=== PATIENT | male | born 1975 | race Two or more races ===

== ENCOUNTER 2020-07-24 11:29 | Outpatient (REF) | payer OTHER, SELFPAY | END 2020-07-24 11:30 | disposition home or self-care (01) | LOC: HO.LAB 11:29 | PROVIDERS: Visit Provider Internal Medicine | DX: Z20.822 Contact with and (suspected) exposure to COVID-19 (principal) | CPT/HCPCS: 36415; C9803; U0003; U0005 ==

== ENCOUNTER 2020-10-29 01:58 | Emergency (ER) | payer OTHER, SELFPAY ==
[2020-10-29 02:45] VITALS: BP 130/75; PULSE 72; RESP 16; TEMP 36.7; O2SAT 100; BMI 24.5
--- NOTE | 2020-10-29 02:49 | ED.BACK ---
HPI - Back Pain/Injury General Chief Complaint: Extremity Injury, Upper Stated Complaint: rt arm pain Time Seen by Provider: 10/29/20 02:10 Source: patient Mode of arrival: ambulatory Limitations: no limitations History of Present Illness MD elicited complaint: back pain Pertinent past history: prior back pain and back surgery Onset (ago): week(s) (1) Timing: constant Severity: severe Quality: sharp and stabbing Location: thoracic spine Radiation: other (L shoulder) Exacerbating factors: movement Relieving factors: none Context: unknown Associated symptoms: denies other symptoms Work related injury: No Related Data Previous Rx's Medication Instructions Recorded diazepam [Valium] 5 mg PO TID PRN #10 tab 10/29/20 ibuprofen 600 mg PO Q6H PRN #30 tab 10/29/20 lidocaine 1 patch TOPICAL DAILY PRN #10 ea 10/29/20 prednisone 40 mg PO DAILY 4 Days #8 tab 10/29/20 Allergies Allergy/AdvReac Type Severity Reaction Status Date / Time Gadolinium-Containing Allergy Mild Pt Unverified 02/29/20 15:54 Contrast Medi developed [GADOLINIUM-CONTAINING hives on CONTRAST] neck and chest, no other complications acetaminophen [Vicodin] Allergy Unknown rash Verified 06/06/20 14:27 hydrocodone [From VICODIN] Allergy Unknown RASH Verified 06/06/20 14:27 penicillin V Allergy Unknown Unknown Verified 06/06/20 14:27 Penicillins [PENICILLINS] Allergy Unknown HIVES Verified 06/06/20 14:27 Review of Systems Review of Systems: Constitutional : No Weight loss, No Fever ENT/Mouth : No Hearing loss, No Ear Pain Cardiovascular : No Chest Pain, No SOB Respiratory : No Cough, No Dyspnea Gastrointestinal : No Nausea, No Vomiting Genitourinary : No Dysuria, No Urinary Frequency Musculoskeletal : positive back pain Skin : No Skin Lesions, No rash Neuro : No Weakness, No Numbness, No Paresthesias, no loss of bowel or bladder incontinence, no saddle anesthesia PMFSH Past Medical History Attestation statement: The following information was validated with the patient. Medical History Back pain Surgical History (Updated 06/06/20 @ 14:28 by Elba Vargas, SAIMA, [employer] CON[employer]YOR OPERATOR) No pertinent past surgical history Family History Family History (Updated 06/06/20 @ 14:32 by Elba Vargas, RMA, C[employer] CONVEYOR OPERATOR) Father Unknown family medical history Mother Diabetes mellitus Heart failure HTN (hypertension) History of bilateral hip replacements Maternal Grandmother Diabetes mellitus HTN (hypertension) Social History Social History (Updated 10/29/20 @ 02:59 by Justa Murillo DO) Use of substances other than those prescribed or required for medical reasons: No Advance Directives: No Advance Directives Information Provided: No Physical Exam Vital Signs: Vital Signs: Last Vital Signs Temp 98.0 F 10/29/20 02:45 Pulse 72 10/29/20 02:45 Resp 16 10/29/20 02:45 BP 130/75 10/29/20 02:45 Pulse Ox 100 10/29/20 02:45 Body Mass Index 24.5 Appearance: Alert. Oriented X3. No acute distress. Eyes: Pupils equal, round and reactive to light. ENT: Pharynx normal. Neck: Normal inspection. Neck supple. CVS: Normal heart rate and rhythm. Pulses normal. Respiratory: No respiratory distress. Breath sounds normal. Abdomen: Soft and nontender. Back: upper back ttp along L paraspinal thoracic area with spasm, radiates to LUE NV intact Skin: Skin warm and dry. Normal skin color. Normal skin turgor. Extremities: No lower extremity edema. No calf ttp Neuro: Oriented X 3. No motor deficit. No sensory deficit. MDM - Back Pain/Injury MDM Narrative Medical decision making narrative: 45 yo male prior back injury and comes in with 1 week of upper back pain radiating to LUE making it painful at his shoulder, no trauma, no AC therapy, no IVDA - NV intact, will treat as radiculopathy and DC home has NSGY he has seen in the past Discharge Plan Discharge Clinical Impression: Radiculopathy of thoracic region Patient Disposition: Home, Self-Care Instructions: Back Pain (ED) Additional Instructions: return to ED for any worsening symptoms or concerns Prescriptions: New lidocaine 4 % adhesive patch,medicated 1 patch topical DAILY PRN (Reason: pain) Qty: 10 RF: 0 ibuprofen 600 mg tablet 600 mg PO Q6H PRN (Reason: pain) Qty: 30 RF: 0 diazepam [Valium] 5 mg tablet 5 mg PO TID PRN (Reason: muscle spasm) Qty: 10 RF: 0 prednisone 20 mg tablet 40 mg PO DAILY 4 Days Qty: 8 RF: 0 Referrals: Kendra Abraham MD [Physician] - 5 days
[2020-10-29] MEDS: diazePAM 5 MG TABLET PO (02:56)
[2020-10-29] MEDS: predniSONE 20 MG TABLET PO (02:56)
[2020-10-29] MEDS: Lidocaine 4 % Patch ADH..PATCH 1 PATCH TRANSDERMA (02:58)
[2020-10-29] MEDS: Ketorolac Tromethamine 60 MG/2 ML VIAL IM (03:00)
== END 2020-10-29 03:00 | disposition home or self-care (01) ==
PROVIDERS: Emergency Provider Emergency Medicine; PCP Nurse Practitioner Family
DX: M54.14 Radiculopathy, thoracic region (principal); M54.6 Pain in thoracic spine
CPT/HCPCS: 96372; 99283; 99284; J1885

== ENCOUNTER 2020-11-06 16:23 | Emergency (ER) | payer OTHER, SELFPAY ==
--- NOTE | ~2020-11-06 | XR_ITS ---
EXAMINATION: XR SHOULDER, LEFT CLINICAL INFORMATION: Shoulder injury and pain COMPARISON: None TECHNIQUE: Three views of the left shoulder. FINDINGS: Marked degenerative changes present at the acromioclavicular joint with some large osteophytes causing skin bulging. Glenohumeral joint appears normal. No calcifications are seen in the rotator cuff. No fractures or dislocations. There is cortical thickening and visualized left humeral diaphysis which may be related to a remote fracture. XR/XR shoulder LT min 2V IMPRESSION: No evidence of an acute injury. Degenerative changes left AC joint.
[2020-11-06 16:42] VITALS: BP 121/71; PULSE 85; RESP 18; TEMP 36.7; O2SAT 99; BMI 24.2
--- NOTE | 2020-11-06 17:59 | ED.EXTPRO ---
HPI - Extremity Problem General Chief complaint: Extremity Injury, Upper <GUADALUPE Gtz Last Filed: 11/15/20 12:37> Stated complaint: sholder pain <GUADALUPE Gtz Last Filed: 11/15/20 12:37> Time Seen by Provider: 11/06/20 16:43 <GUADALUPE Gtz Last Filed: 11/15/20 12:37> History of Present Illness HPI Narrative: Left shoulder pain after lifting a heavy object today, patient has history of problems with this shoulder, no numbness or weakness no tingling no neck pain no back pain <GUADALUPE Gtz Last Filed: 11/15/20 12:37> Related Data Home medications: Previous Rx's Medication Instructions Recorded diazepam [Valium] 5 mg PO TID PRN #10 tab 10/29/20 ibuprofen 600 mg PO Q6H PRN #30 tab 10/29/20 lidocaine 1 patch TOPICAL DAILY PRN #10 ea 10/29/20 prednisone 40 mg PO DAILY 4 Days #8 tab 10/29/20 ibuprofen 600 mg PO Q6H PRN #20 tab 11/06/20 oxycodone 5 mg PO Q6H PRN #10 tab 11/06/20 <GUADALUPE Gtz Last Filed: 11/15/20 12:37> Allergies/Adverse reactions: Allergies Allergy/AdvReac Type Severity Reaction Status Date / Time Gadolinium-Containing Allergy Mild Pt Verified 11/06/20 16:46 Contrast Medi developed [GADOLINIUM-CONTAINING hives on CONTRAST] neck and chest, no other complications acetaminophen [Vicodin] Allergy Unknown rash Verified 11/06/20 16:46 hydrocodone [From VICODIN] Allergy Unknown RASH Verified 11/06/20 16:46 penicillin V Allergy Unknown Unknown Verified 11/06/20 16:46 Penicillins [PENICILLINS] Allergy Unknown HIVES Verified 11/06/20 16:46 <GUADALUPE Gtz Last Filed: 11/15/20 12:37> Review of Systems Review of Systems: Positive for left shoulder pain with movement Negatives are no fever chills no dizziness or weakness no headache no neck pain no back pain no numbness weakness or tingling no skin rash <GUADALUPE Gtz Last Filed: 11/15/20 12:37> Yes all other systems are reviewed and are negative <GUADALUPE Gtz Last Filed: 11/15/20 12:37> [facility] Past Medical History Source: nursing notes reviewed <GUADALUPE Gtz - Last Filed: 11/15/20 12:37> Medical History: Medical History (Updated 11/07/20 @ 00:01 by Rhiannon Moe) Back pain <GUADALUPE Gtz - Last Filed: 11/15/20 12:37> Surgical History: Surgical History (Updated 11/06/20 @ 16:44 by Géneiss Bradshaw RN) No pertinent past surgical history Previous back surgery <GUADALUPE Gtz - Last Filed: 11/15/20 12:37> Family History Family History: Family History (Updated 06/06/20 @ 14:32 by RUBINA Austin, [facility]) Father Unknown family medical history Mother Diabetes mellitus Heart failure HTN (hypertension) History of bilateral hip replacements Maternal Grandmother Diabetes mellitus HTN (hypertension) <GUADALUPE Gtz - Last Filed: 11/15/20 12:37> Social History Social History: Social History (Updated 10/29/20 @ 02:59 by Justa Murillo DO) Advance Directives: No Advance Directives Information Provided: No <GUADALUPE Gtz - Last Filed: 11/15/20 12:37> Physical Exam Vital Signs: Vital Signs: Last Vital Signs Temp 98.0 F 11/06/20 16:42 Pulse 85 11/06/20 16:42 Resp 18 11/06/20 16:42 BP 121/71 11/06/20 16:42 Pulse Ox 99 11/06/20 16:42 Body Mass Index 24.2 <GUADALUPE Gtz - Last Filed: 11/15/20 12:37> Vital Signs: Last Vital Signs Temp 98.0 F 11/06/20 16:42 Pulse 85 11/06/20 16:42 Resp 18 11/06/20 16:42 BP 121/71 11/06/20 16:42 Pulse Ox 99 11/06/20 16:42 Body Mass Index 24.2 <Collin Cartagena MD - Last Filed: 12/17/20 18:52> General appearance no distress Head is normocephalic atraumatic Neck is supple nontender Chest is clear to auscultation bilateral symmetric equal breath sounds No chest wall tenderness Heart no murmur Abdomen soft nontender Extremities the left shoulder has tenderness, pain is easily reproduced with movement, there is limited extension abduction and external rotation aunt's neurovascular intact distal and skin is normal without any redness swelling or evidence of effusion Other extremities normal Skin no rash Neuro no focal motor or sensory deficits <GUADALUPE Gtz Last Filed: 11/15/20 12:37> Course Course Course Narrative: X-ray did not reveal any acute pathology and patient is referred to orthopedist as there was some evidence of arthritis in the shoulder <GUADALUPE Gtz - Last Filed: 11/15/20 12:37> I have reviewed the chart <Collin Cartagena MD - Last Filed: 12/17/20 18:52> Discharge Plan Discharge Clinical Impression: Arthralgia of left shoulder region <GUADALUPE Gtz Last Filed: 11/15/20 12:37> Patient Disposition: Home, Self-Care <GUADALUPE Gtz Last Filed: 11/15/20 12:37> Prescriptions: New oxycodone 5 mg tablet 5 mg PO Q6H PRN (Reason: pain) Qty: 10 RF: 0 ibuprofen 600 mg tablet 600 mg PO Q6H PRN (Reason: pain) Qty: 20 RF: 0 No Action lidocaine 4 % adhesive patch,medicated 1 patch topical DAILY PRN (Reason: pain) Qty: 10 RF: 0 ibuprofen 600 mg tablet 600 mg PO Q6H PRN (Reason: pain) Qty: 30 RF: 0 diazepam [Valium] 5 mg tablet 5 mg PO TID PRN (Reason: muscle spasm) Qty: 10 RF: 0 prednisone 20 mg tablet 40 mg PO DAILY 4 Days Qty: 8 RF: 0 <GUADALUPE Gtz Last Filed: 11/15/20 12:37> Referrals: Ismael Paz MD [Physician] - 2 days (Left shoulder pain, possible candidate for steroid shot) <GUADALUPE Gtz Last Filed: 11/15/20 12:37> Interventions: ED Discharge Assessment Last Done: 11/06/20 18:38 <GUADALUPE Gtz Last Filed: 11/15/20 12:37> Discharge Date/Time: 11/06/20 18:39 <GUADALUPE Gtz - Last Filed: 11/15/20 12:37>
== END 2020-11-06 18:39 | disposition home or self-care (01) ==
PROVIDERS: Emergency Provider Internal Medicine; PCP Nurse Practitioner Family
DX: M25.512 Pain in left shoulder (principal); Z79.899 Other long term (current) drug therapy
CPT/HCPCS: 73030; 99283

== ENCOUNTER 2021-03-13 14:52 | Emergency (ER) | payer OTHER, SELFPAY ==
[2021-03-13 15:02] VITALS: BP 108/74; PULSE 69; RESP 18; TEMP 36.8; O2SAT 97; BMI 24.7
--- NOTE | 2021-03-13 16:51 | ED.WOUNDLAC ---
HPI - Wound/Laceration General Chief Complaint: Wound/Laceration Stated Complaint: laceration rt ankle Time Seen by Provider: 03/13/21 16:41 Source: patient and family Mode of arrival: ambulatory Limitations: no limitations History of Present Illness HPI narrative: Patient tells me that he was doing a remodal and a piece of a toilet cut his right lower leg causing a laceration. His tetanus status is unknown. Related Data Previous Rx's Medication Instructions Recorded diazepam 5 mg tablet (Valium) 5 mg PO TID PRN #10 tab 10/29/20 ibuprofen 600 mg tablet 600 mg PO Q6H PRN #30 tab 10/29/20 lidocaine 4 % topical patch 1 patch TOPICAL DAILY PRN #10 ea 10/29/20 prednisone 20 mg tablet 40 mg PO DAILY 4 Days #8 tab 10/29/20 ibuprofen 600 mg tablet 600 mg PO Q6H PRN #20 tab 11/06/20 oxycodone 5 mg tablet 5 mg PO Q6H PRN #10 tab 11/06/20 Allergies Allergy/AdvReac Type Severity Reaction Status Date / Time acetaminophen [Vicodin] Allergy Intermediate rash Unverified 03/13/21 15:02 hydrocodone [From VICODIN] Allergy Intermediate RASH Verified 03/13/21 15:02 penicillin V Allergy Intermediate Unknown Verified 03/13/21 15:02 Penicillins [PENICILLINS] Allergy Intermediate HIVES Verified 03/13/21 15:02 Gadolinium-Containing Allergy Mild Pt Verified 03/13/21 15:02 Contrast Medi developed [GADOLINIUM-CONTAINING hives on CONTRAST] neck and chest, no other complications Review of Systems Review of Systems: Yes all other systems are reviewed and are negative Constitutional: Constitutional: Reports no additional constitutional complaints, Denies body ache(s), Denies chills, Denies fever(s), Denies headache(s) and Denies weakness Eyes: Eyes: Reports no additional eye complaints and Denies change in vision ENT: Reports system reviewed and no additional complaints, except as documented, Denies dizziness, Denies headache(s), Denies nasal congestion, Denies nasal discharge and Denies neck pain Cardiovascular: Cardiovascular: Reports no additional cardiovascular complaints, Denies chest pain, Denies leg edema and Denies dyspnea Respiratory: Respiratory: Reports no additional respiratory complaints, Denies cough and Denies dyspnea Gastrointestinal: Gastrointestinal: Reports no additional gastrointestinal complaints, Denies abdominal pain, Denies diarrhea, Denies nausea and Denies vomiting Genitourinary: Genitourinary: Denies urinary incontinence Musculoskeletal: Musculoskeletal: Reports no additional musculoskeletal complaints, Denies back pain, Denies arthralgias, Denies joint swelling, Denies neck pain, Denies numbness and Denies tingling Integumentary/Breasts: Skin/Breast: Reports system reviewed and no additional complaints, except as docu and Denies rash Comments: +laceration Neurologic: Reports system reviewed and no additional complaints, except as documented, Denies Abnormal speech present, Denies dizziness, Denies headache(s), Denies numbness, Denies tingling and Denies weakness PMFSH Past Medical History Attestation statement: The following information was validated with the patient. Source: old records reviewed and nursing notes reviewed Medical History Back pain Surgical History Previous back surgery Family History Family History Father Unknown family medical history Mother Diabetes mellitus Heart failure HTN (hypertension) History of bilateral hip replacements Maternal Grandmother Diabetes mellitus HTN (hypertension) Social History Social History Advance Directives: No Advance Directives Information Provided: Yes Physical Exam Vital Signs: Vital Signs: Last Vital Signs Temp 98.2 F 03/13/21 15:02 Pulse 69 03/13/21 15:02 Resp 18 03/13/21 15:02 BP 108/74 03/13/21 15:02 Pulse Ox 97 03/13/21 15:02 Body Mass Index 24.7 Const: General: cooperative, healthy appearing, comfortable and no acute distress Orientation/consciousness: patient oriented x3 Limitations: no limitations HENMT: Head: Yes normal to inspection Ears: hearing grossly normal bilaterally General nose exam: Normal external nose present Face and sinus: Yes normal facial exam Mouth: Normal oral and palatal mucosa present Throat: Yes posterior oropharynx normal Eyes: General: appearance normal, both eyes and all related structures Pupils: Equal, round and reactive pupils present Neck: Neck: Yes normal visual inspection Chest: Chest palpation & inspection: normal inspection of the chest Resp: Effort & Inspection: normal respiratory effort Auscultation: clear to auscultation bilaterally Cardio: Rate: regular rate Rhythm: regular rhythm Peripheral pulses: Peripheral pulses 2+ throughout GI: Inspection: Yes normal to inspection Palpation (GI): Soft to palpation and nontender Auscultation: normal bowel sounds Back/Spine/Pelvis: Thoracic/Lumbar Spine: thoracic and lumbar spine normal to inspection Skin: General skin exam: no rashes or lesions noted Neuro: General: patient oriented x3, no focal motor deficits and normal sensation to monofilament Cranial nerves: Yes Equal, round and reactive pupils present Cognition (Neuro): normal cognition Speech: No Abnormal speech present Gait exam (Neuro): Normal gait present Motor exam (neuro): 5/5 motor strength present throughout Extrem: Other: On the medial aspect of the right lower leg there is a 5 centimetre skin avulsion noted. The edges are easily approximated. Bleeding is controlled General: Yes normal to inspection Course Course Course Narrative: Skin avulsion to the right lower extremity. The skin was approximated and closed with Steri-Strips and topical glue. Tetanus updated. Reviewed worrisome signs and symptoms when to return to the emergency department. Comfortable discharge home. MDM - Wound/Laceration Differential Diagnosis Differential diagnosis: Likely avulsion of skin Medical Records Attestation: I reviewed the patient's medical records. Lab Data Attestation: I reviewed the patient's lab results. Discharge Plan Discharge Clinical Impression: Avulsion of skin Patient Disposition: Home, Self-Care Instructions: Skin Avulsion (ED) Additional Instructions: steri strips on for 5 days, You may trim them if they start to lift up Prescriptions: No Action oxycodone 5 mg tablet 5 mg PO Q6H PRN (Reason: pain) Qty: 10 RF: 0 ibuprofen 600 mg tablet 600 mg PO Q6H PRN (Reason: pain) Qty: 20 RF: 0 lidocaine 4 % adhesive patch,medicated 1 patch topical DAILY PRN (Reason: pain) Qty: 10 RF: 0 ibuprofen 600 mg tablet 600 mg PO Q6H PRN (Reason: pain) Qty: 30 RF: 0 diazepam [Valium] 5 mg tablet 5 mg PO TID PRN (Reason: muscle spasm) Qty: 10 RF: 0 prednisone 20 mg tablet 40 mg PO DAILY 4 Days Qty: 8 RF: 0 Referrals: Kranthi Varner, [employer] [Primary Care Provider] - 2 days
[2021-03-13] MEDS: Diphth,Pertus(ACell),Tet Adult 0.5 ML SYRINGE IM (17:10)
== END 2021-03-13 17:13 | disposition home or self-care (01) ==
PROVIDERS: Emergency Provider Emergency Medicine Emergency Medical Services; PCP Nurse Practitioner Family
DX: S90.511A Abrasion, right ankle, initial encounter (principal); M25.571 Pain in right ankle and joints of right foot; W26.9XXA Contact with unspecified sharp object(s), initial encounter; Y93.9 Activity, unspecified; Y92.9 Unspecified place or not applicable; Y99.9 Unspecified external cause status; Z79.899 Other long term (current) drug therapy
CPT/HCPCS: 90471; 90715; 99283; 99284

== ENCOUNTER 2021-03-29 17:03 | Inpatient (IN) | payer OTHER, SELFPAY ==
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
[2021-03-29 17:22] VITALS: BP 130/90; BP 137/81; PULSE 80; PULSE 84; RESP 17; TEMP 36.6; O2SAT 100; O2SAT 99; BMI 20.9
[2021-03-29 17:30] VITALS: BP 137/81; PULSE 80; RESP 16; TEMP 36.6; O2SAT 99
[2021-03-29 17:38] LABS: MANUAL DIFF FLAG NO
[2021-03-29 17:40] LABS: Basophils Percent Auto 0.4 % (0-2); Eosinophils Absolute Auto 0.1 X10*3/uL (0.0-0.4); Eosinophils Percent Auto 0.7 % (0-4); Hematocrit 46.1 % (42-52); Hemoglobin 15.9 g/dl (14.0-18.0); Imm Gran Abs Auto 0.01 X10*3/uL (0.00-0.03); Imm Gran Pct Auto 0.1 % (0.0-0.4); Lymphocytes Absolute Auto 2.7 X10*3/uL (1.2-4.9); Lymphocytes Percent Auto 37.8 % (20-40); Mean Corpuscular HGB Conc 34.5 g/dl (31.0-36.0); Mean Corpuscular Hemoglobin 32.3 pg (27.0-33.0); Mean Corpuscular Volume 93.7 fL (80-98); Mean Platelet Volume 10.5 fL (9.4-12.4); Monocytes Absolute Auto 0.5 X10*3/uL (0.1-1.2); Monocytes Percent Auto 7.6 % (2-11); Neutrophils Absolute Auto 3.8 X10*3/uL (2.0-8.3); Neutrophils Percent Auto 53.4 % (45-73); Platelet Count 232 X10*3/uL (160-400); Red Blood Count 4.92 X10*6/uL (4.60-5.80); Red Cell Distribution Width 12.6 % (11.0-16.0); White Blood Count 7.1 X10*3/uL (4.8-10.8)
[2021-03-29] MEDS: Ibuprofen 600 MG TABLET PO (17:41)
[2021-03-29 17:52] LABS: Ethanol < 10 mg/dL
[2021-03-29 17:55] LABS: Alanine Aminotransferase 16 U/L (0-40); Albumin Level 4.7 g/dL (3.5-5.0); Alkaline Phosphatase 91 U/L (39-117); Anion Gap 14 (12-20); Aspartate Amino Transferase 20 U/L (5-37); Bilirubin Total 0.7 mg/dL (0.0-1.0); Blood Urea Nitrogen 14 mg/dL (9-16); Calcium 9.5 mg/dL (8.4-10.2); Carbon Dioxide 26 mmol/L (22-29); Chloride 107 mmol/L (96-108); Creatinine Clr Calc Pharmacy 70.6; Estimated Glomerular Filt Rate > 60; Glucose Random 101 mg/dL (60-115); Potassium 4.5 mmol/L (3.3-5.1); Sodium 142 mmol/L (135-145); Total Protein 7.5 g/dL (6.5-8.0)
[2021-03-29 18:28] LABS: COVID-19 Test Negative (Negative)
[2021-03-29 19:28] LABS: Glucose, Whole Blood 117 mg/dL (60-115)
--- NOTE | 2021-03-29 20:12 | PC.NURSE ---
care team is meeting with the pt at this time.
[2021-03-30] VITALS (7 sets, daily range): BP systolic 110; BP diastolic 71; PULSE 68; RESP 14–18; TEMP 36.6; O2SAT 99
--- NOTE | 2021-03-30 06:45 | PC.NURSE ---
Pt slept thru the night, pt made aware of the need for a urine sample. pt states in a little while. bp soft on waking, will reassess.
--- NOTE | 2021-03-30 07:42 | PC.NURSE ---
pt taking shower at this time
[2021-03-30 08:16] LABS: Amphetamine Screen Urine Not Detected (Not Detect); Barbiturates, Urine Not Detected (Not Detect); Benzodiazepines Screen Urine Not Detected (Not Detect); Cannabinoid Screen Urine POSITIVE (Not Detect); Cocaine Screen Urine Not Detected (Not Detect); Fentanyl, urine Not Detected (Not Detect); Opiate Screen Urine Not Detected (Not Detect); Phencyclidine Screen Urine Not Detected (Not Detect)
--- NOTE | 2021-03-30 09:48 | PC.NURSE ---
care team to bed side- pt started raising his voice and started posturing and making threatening statements toward staff. Multiple security to bedside- preparing for need of behavorial or chemical restraints with PA at bedside. Security attempting to speak with pt to try to redirect pt behavior. pt continues to make threatening comments towards staff stating I will come back here and you will see! . Multiple attempts made to make pt comfortable and offer medications, food, drink etc. pt refusing and states he doesnt want anything. security remains at bedside at this time.
[2021-03-30] MEDS: HaloperidoL 5 MG TABLET PO (10:15)
[2021-03-30] MEDS: LORazepam 1 MG TABLET 2 MG PO ×2 (10:15→20:33)
[2021-03-30] MEDS: diphenhydrAMINE HCL 25 MG TABLET 50 MG PO (10:15)
--- NOTE | 2021-03-30 10:23 | PC.NURSE ---
pt medicated per pt request to help him relax. pt requesting po meds.
--- NOTE | 2021-03-30 15:23 | PC.NURSE ---
Report recieved. Pt resting comfortably in bed, no complaints at this time, no signs of distress, calm and cooperative. Continues to be a section 12 bed search.
--- NOTE | 2021-03-30 17:25 | PC.NURSE ---
Pt appears to be resting comfortably in bed at current, no signs of distress.
[2021-03-30] MEDS: diphenhydrAMINE HCL 25 MG TABLET PO (20:32)
--- NOTE | 2021-03-31 06:09 | PC.NURSE ---
Patient slept through the night, no distress observed/reported, patient is pre-accepted to [facility], disposition was section 12 inpatient bed search, patient is ABT treatment for right foot infection, will continue to monitor.
[2021-03-31 06:34] VITALS: BP 90/59; PULSE 58; RESP 16; TEMP 37; O2SAT 98
--- NOTE | 2021-03-31 07:10 | PC.NURSE ---
patient appears to remain at rest at present respirations are even and unlabored, patient appears in no distress
--- NOTE | 2021-03-31 08:13 | PC.NURSE ---
patient declined this wreiter to speak to his . i asked consent and client responded not after three days and made angry comments as this card writer hand walked away. earlier client declined antibiotic and said if youre not going to knock me out you can keep your fucking meds
[2021-03-31] MEDS: Haloperidol Lactate 5 MG/ML VIAL IM (11:51)
[2021-03-31] MEDS: diphenhydrAMINE HCL 50 MG/ML VIAL IM (11:51)
--- NOTE | 2021-03-31 11:53 | PC.NURSE ---
patient verbally threatening, offered meds, declined.informed security.
--- NOTE | 2021-03-31 14:24 | MHC.CR.ITR ---
Call from [facility] hoop punch operator helper (Julia Grijalva [phone]), as part of investigation she was seeking additional information for patient and his , contact numbers from [employer] were provided.
--- NOTE | 2021-04-01 | ECG_ITS ---
Test Reason : medclearance Blood Pressure : / mmHG Vent. Rate : 062 BPM Atrial Rate : 062 BPM P-R Int : 134 ms QRS Dur : 104 ms QT Int : 454 ms P-R-T Axes : 057 052 024 degrees QTc Int : 460 ms Normal sinus rhythm RSR' or QR pattern in V1 suggests right ventricular conduction delay Minimal voltage criteria for LVH, may be normal variant ( Sokolow-Davis ) Borderline ECG When compared with ECG of 22-NOV-2019 07:51, No significant change was found Referred By: Enedina Erwin Electronically Signed By:CORETTA CAR MD
--- NOTE | 2021-04-01 05:40 | PC.NURSE ---
Patient slept through the night, no distress observed/reported, [id number] compliant, behavior appropriate during our shift, appetite good, elemination intact, disposition per care team is section 12 inpatient bed search, will continue to monitor.
[2021-04-01 06:45] VITALS: RESP 17
--- NOTE | 2021-04-01 07:06 | PC.NURSE ---
patient appears to remain asleep at present respirations are even and unlabored patient appears in no distress
[2021-04-01 08:21] VITALS: BP 104/63; PULSE 72; RESP 16; TEMP 36.8; O2SAT 98
--- NOTE | 2021-04-01 08:51 | MHC.CARE ---
Call from [facility] health and wellness instructor (Julia Grijalva [phone]), as part of investigation she was seeking additional information for patient and his , contact numbers from [employer] were provided.
--- NOTE | 2021-04-01 14:23 | PC.NURSE ---
patient states he doesnt do well with other people and refuses to go to inpatient floor youll have to kill me t/w reinforced person are concerned about his safety. t/w spoke to patient about circumstances of his admission and patient minimized his behavior
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
[2021-04-01 17:51] VITALS: BP 139/77; PULSE 70; RESP 16; TEMP 36.7; O2SAT 100
[2021-04-01] MEDS: traZODone HCL 50 MG TABLET PO (20:52)
[2021-04-02 08:42] VITALS: BP 132/82; PULSE 84; RESP 16; TEMP 36.6; O2SAT 98
[2021-04-02 08:52] LABS: Cholesterol 180 mg/dL; HDL Cholesterol 40 mg/dL; LDL Cholesterol Calculated 122 mg/dl; Triglycerides 92 mg/dL
[2021-04-02 08:54] LABS: Estimated Average Glucose 105 mg/dL; Hemoglobin A1c % 5.3 %
--- NOTE | 2021-04-02 09:13 | PC.NURSE ---
Pt offered nicotine patch and gum, pt declining both at this time. States no cravings for nicotine.
[2021-04-02 09:39] LABS: Folate 12.2 ng/mL (> or = 4.0); Vitamin B12 531 pg/mL (200-900)
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
[2021-04-02] MEDS: FLUoxetine HCl 10 MG CAPSULE PO (12:52)
--- NOTE | 2021-04-02 15:14 | PC.RT ---
Resp Therapy made 2 aatempts today to see Mr. Kuo. He was with the MD and then with the brood station manager. We will attempt again to see him either tonight or tomorrow am.
[2021-04-02 20:30] VITALS: BP 129/75; PULSE 70
[2021-04-02] MEDS: Prazosin HCL 1 MG CAPSULE PO (20:30)
[2021-04-02 20:47] VITALS: BP 129/75; PULSE 70; RESP 18; TEMP 36.2; O2SAT 98
[2021-04-02] MEDS: QUEtiapine Fumarate 25 MG TABLET PO (22:20)
[2021-04-03 07:00] VITALS: BMI 24.0
[2021-04-03] MEDS: FLUoxetine HCl 10 MG CAPSULE PO (08:54)
[2021-04-03] MEDS: Ibuprofen 600 MG TABLET PO (09:32)
[2021-04-03 09:39] VITALS: BP 115/69; PULSE 97; RESP 18; TEMP 36.4; O2SAT 99
--- NOTE | 2021-04-03 13:45 | HO.PSYCHPN ---
Subjective Subjective Date of Service: 04/03/21 Reason For Visit: SI Interim History: Patient reports that he is feeling good. He says he slept well last night and was without nightmares something he was very grateful to share. Patient denies any SI or HI or AVH. He is thankful for help received on the unit and is hopeful that current medication regimen will prove affective. To that and he would like Prozac increased to 20 mg to which food writer agrees. Patient said that he took Seroquel yesterday as well and it was the perfect dose; in the past dose was much higher and overly sedated him but he said the 25 mg as a p.r.n. was helpful to calm him down. Patient said that he is willing to stay on the unit as long as his team feels is necessary; his main focus however is outpatient treatment and having a therapist which he was happy to learn is being scheduled. On further discussion patient shared some anxiety about losing housing, saying that his landlord demands the rent money by Wednesday, as patient missed paying rent last weekend since he was in the hospital. Patient said that he does have a job that he needs to finish that will give him enough hagen to pay rent however he is not worried about losing housing, saying that making sure his medications are right is more important to him. Sharepoint Solutions Developer and team discussed this further with patient; team agrees that patient is currently stable; patient's medication regimen is the pretty much complete and no new changes are planned after increasing Prozac to 20 mg. Sharepoint Solutions Developer appreciates patient's willingness to stay on the unit however team agrees that the repercussions of him losing housing outweigh the modest benefit patient will get by remaining on the unit another couple days. It is worth noting that patient did not ask for discharge on Wednesday and it was only from food writer's continued inquiry that patient shared his rent/housing situation. Patient is in a good mood, calm, appropriate with peers and staff, demonstrating good behavioral and impulse control, future oriented, without SI or HI and eager to continue treatment. At this point, he is appropriate to continue his treatment as an outpatient. Patient agrees with this plan. Mental Status Exam Mental Status Exam Narrative: Pt is alert and oriented; behavior is cooperative, friendly and calm; patient is not in distress; dressed in casual attire with adequate hygiene; mood is described as irritable and anxious and affect congruent; eye contact appropriate; Speech is normal rate, volume and prosody and not pressured; no psychomotor agitation/retardation present; thought process is organized and goal directed. Thought content is on tx; otherwise pertinent to relevant topics and without any delusional content, paranoid ideations or grandiosity; denies any SI/HI. There is no evidence of perceptual disturbance. ?Patients insight and judgment appear intact. Diagnostics Vital Signs (24Hr): Vital Signs - 24 hr 04/02/21 20:30 04/02/21 20:47 04/03/21 09:39 Temperature 97.2 F 97.6 F Pulse Rate 70 70 97 Respiratory Rate 18 18 Blood Pressure 129/75 129/75 115/69 Pulse Oximetry 98 99 Body Mass Index 24.0 Labs Results: 03/29/21 17:34 03/29/21 17:34 Labs: Laboratory Results - last 48 hr 04/02/21 04/02/21 04/02/21 08:06 08:06 08:06 Estimat Average Glucose 105 Hemoglobin A1c % 5.3 Triglycerides 92 Cholesterol 180 LDL Cholesterol, Calc 122 HDL Cholesterol 40 Vitamin B12 531 Folate 12.2 Medications Medications Current Medications Al Hydroxide/Mg Hydroxide (Magnesium Hydrox/Alum Hydrox 30 Ml Oral.Susp) 30 ml PO Q6H PRN PRN Reason: Heartburn/Nausea Clonidine HCl (Clonidine Hcl 0.1 Mg Tablet) 0.1 mg PO Q4H PRN; Protocol PRN Reason: mild-mod anxiety Diphenhydramine HCl (Diphenhydramine Hcl 25 Mg Tablet) 50 mg PO Q4H PRN PRN Reason: agitation Doxycycline Hyclate (Doxycycline Hyclate 100 Mg Tablet) 100 mg PO BID [facility] Stop: 04/08/21 09:01 Last Admin: 04/03/21 08:54 Dose: 100 mg Documented by: Fluoxetine HCl (Fluoxetine Hcl 10 Mg Capsule) 10 mg PO DAILY [facility] Last Admin: 04/03/21 08:54 Dose: 10 mg Documented by: Haloperidol (Haloperidol 5 Mg Tablet) 5 mg PO Q4H PRN PRN Reason: agitation Hydroxyzine HCl (Hydroxyzine Hcl 25 Mg Tablet) 25 mg PO Q6H PRN PRN Reason: Anxiety Ibuprofen (Ibuprofen 600 Mg Tablet) 600 mg PO Q8H PRN PRN Reason: Pain, Moderate (Pain Scale 4-6 Last Admin: 04/03/21 09:32 Dose: 600 mg Documented by: Lorazepam (Lorazepam 1 Mg Tablet) 2 mg PO Q4H PRN PRN Reason: agitation Magnesium Hydroxide (Milk Of Magnesia 30 Ml Oral.Susp) 30 ml PO DAILY PRN PRN Reason: Constipation Prazosin HCl (Prazosin Hcl 1 Mg Capsule) 1 mg PO BEDTIME DEIRDRE; Protocol Last Admin: 04/02/21 20:30 Dose: 1 mg Documented by: Quetiapine Fumarate (Quetiapine Fumarate 25 Mg Tablet) 25 mg PO TID PRN PRN Reason: moderate anxiety Last Admin: 04/02/21 22:20 Dose: 25 mg Documented by: Trazodone HCl (Trazodone Hcl 50 Mg Tablet) 50 mg PO BEDTIME PRN PRN Reason: Insomnia Last Admin: 04/01/21 20:52 Dose: 50 mg Documented by: Allergies Allergies Allergy/AdvReac Type Severity Reaction Status Date / Time acetaminophen [Vicodin] Allergy Intermediate rash Unverified 03/13/21 15:02 hydrocodone [From VICODIN] Allergy Intermediate RASH Verified 03/13/21 15:02 penicillin V Allergy Intermediate Unknown Verified 03/13/21 15:02 Penicillins [PENICILLINS] Allergy Intermediate HIVES Verified 03/13/21 15:02 Gadolinium-Containing Allergy Mild Pt Verified 03/13/21 15:02 Contrast Medi developed [GADOLINIUM-CONTAINING hives on CONTRAST] neck and chest, no other complications Assessment & Plan Assessment & Plan (1) Chronic post-traumatic stress disorder (PTSD): Status: Acute Code(s): F43.12 - Post-traumatic stress disorder, chronic (2) Adjustment disorder with mixed disturbance of emotions and conduct in remission: Status: Acute Code(s): F43.25 - Adjustment disorder with mixed disturbance of emotions and conduct Assessment and Plan: IMPRESSION: Pt is a 45 yo male with hx of childhood trauma, depression, PTSD, who presents for dysregulated mood in face of 1 year anniversary of beloved mothers and relational strife with family friends. -adjustment disorder with disturbance of mood and conduct in face of psychosocial stresses -no hx of nicholas; denies depression; pt agrees to start Prozac for anxiety/ptsd; agrees to Prazosin for nightmares adn clonidine and serquel for anxiety/agitation -DCF involved; pt accepting - present on admission; supportive Patient reports that he is feeling good. He says he slept well last night and was without nightmares something he was very grateful to share. Patient denies any SI or HI or AVH. He is thankful for help received on the unit and is hopeful that current medication regimen will prove affective. To that and he would like Prozac increased to 20 mg to which food writer agrees. Patient said that he took Seroquel yesterday as well and it was the perfect dose; in the past dose was much higher and overly sedated him but he said the 25 mg as a p.r.n. was helpful to calm him down. Patient said that he is willing to stay on the unit as long as his team feels is necessary; his main focus however is outpatient treatment and having a therapist which he was happy to learn is being scheduled. On further discussion patient shared some anxiety about losing housing, saying that his landlord demands the rent money by Wednesday, as patient missed paying rent last weekend since he was in the hospital. Patient said that he does have a job that he needs to finish that will give him enough hagen to pay rent however he is not worried about losing housing, saying that making sure his medications are right is more important to him. Sharepoint Solutions Developer and team discussed this further with patient; team agrees that patient is currently stable; patient's medication regimen is the pretty much complete and no new changes are planned after increasing Prozac to 20 mg. Sharepoint Solutions Developer appreciates patient's willingness to stay on the unit however team agrees that the repercussions of him losing housing outweigh the modest benefit patient will get by remaining on the unit another couple days. It is worth noting that patient did not ask for discharge on Wednesday and it was only from food writer's continued inquiry that patient shared his rent/housing situation. Patient is in a good mood, calm, appropriate with peers and staff, demonstrating good behavioral and impulse control, future oriented, without SI or HI and eager to continue treatment. At this point, he is appropriate to continue his treatment as an outpatient. Patient agrees with this plan. Patient is not in imminent risk for harm to self or others. PLAN: CV q15min checks INCREASE Prozac 20 MG daily Continue Prazosin 1mg for nightmares Continue Clonidine PrN for anxiety Continue serqoquel 25mg prn w/ repeat for continued anxiety pt may benefit from low dose mood stabilizer given easily triggered, highly expressed emotions but will first see how SSRI tolerated DCF involved; pt accepting therapy for after care I spent minutes with the patient and/or on the patient floor today, greater than?50% of which was spent counseling/coordinating care. Reason for contiued inpatient stay Substantial Risk for: stable for discharge
--- NOTE | 2021-04-03 17:10 | P.DS_ITS ---
DS: Providers Provider Date of Service: 04/04/21 Date of admission: 04/01/21 16:03 Date of discharge: 04/04/21 [facility] Attending physician on admission: Norberto Gonzalez Attending physician on discharge: Norberto Gonzalez DS: Diagnosis Discharge Diagnosis (1) Adjustment disorder with mixed disturbance of emotions and conduct in remission: Status: Acute (2) Chronic post-traumatic stress disorder (PTSD): Status: Chronic DS: Medications Discharge Medications Home Medications: Previous Rx's Medication Instructions Recorded lidocaine 4 % topical patch 1 patch TOPICAL DAILY PRN #10 ea 10/29/20 ibuprofen 600 mg tablet 600 mg PO Q6H PRN #20 tab 11/06/20 oxycodone 5 mg tablet 5 mg PO Q6H PRN #10 tab 11/06/20 doxycycline hyclate 100 mg tablet 100 mg PO BID 5 Days #9 tab 04/03/21 fluoxetine 20 mg capsule 20 mg PO DAILY 30 Days #30 cap 04/03/21 prazosin 1 mg capsule 1 mg PO BEDTIME 30 Days #30 cap 04/03/21 quetiapine 25 mg tablet 25 mg PO TID PRN 30 Days #60 tab 04/03/21 Mental Status Exam Mental Status Exam Narrative: Pt is alert and oriented; behavior is cooperative, friendly and calm; patient is not in distress; dressed in casual attire with adequate hygiene; mood is good and affect congruent, calm; eye contact appropriate; Speech is normal rate, volume and prosody and not pressured; no psychomotor agitation/retardation present; thought process is organized and goal directed. Thought content is on tx; otherwise pertinent to relevant topics and without any delusional content, paranoid ideations or grandiosity; denies any SI/HI. There is no evidence of perceptual disturbance. ?Patients insight and judgment are intact. Data Data Completed and Pending Completed studies during hospitalization [Text1]: 03/29/21 03/29/21 03/29/21 17:34 17:34 17:34 WBC 7.1 RBC 4.92 Hgb 15.9 Hct 46.1 MCV 93.7 MCH 32.3 MCHC 34.5 RDW 12.6 Plt Count 232 MPV 10.5 Immature Gran % (Auto) 0.1 Neut % (Auto) 53.4 Lymph % (Auto) 37.8 [place] % (Auto) 7.6 Eos % (Auto) 0.7 Baso % (Auto) 0.4 Lymph # (Auto) 2.7 [place] # (Auto) 0.5 Eos # (Auto) 0.1 Baso # (Auto) 0.0 Abs Immat Gran (auto) 0.01 Absolute Neuts (auto) 3.8 Absolute Nucleated RBC 0.000 Nucleated RBC % (auto) 0.0 Sodium 142 Potassium 4.5 Chloride 107 Carbon Dioxide 26 Anion Gap 14 BUN 14 Creatinine 1.09 Estim Creat Clear Calc 70.6 Estimated GFR > 60 POC Glucose Random Glucose 101 Estimat Average Glucose Hemoglobin A1c % Calcium 9.5 Total Bilirubin 0.7 AST 20 ALT 16 Alkaline Phosphatase 91 Total Protein 7.5 Albumin 4.7 Triglycerides Cholesterol LDL Cholesterol, Calc HDL Cholesterol Vitamin B12 Folate Urine Opiates Screen Urine Fentanyl Screen Ur Barbiturates Screen Ur Phencyclidine Scrn Ur Amphetamines Screen U Benzodiazepines Scrn Urine Cocaine Screen U Marijuana (THC) Screen Ethyl Alcohol < 10 COVID-19 ([facility]INTHYA) COVID-19 Presentain 03/29/21 03/29/21 03/30/21 18:01 19:22 07:50 WBC RBC Hgb Hct MCV MCH MCHC RDW Plt Count MPV Immature Gran % (Auto) Neut % (Auto) Lymph % (Auto) [place] % (Auto) Eos % (Auto) Baso % (Auto) Lymph # (Auto) [place] # (Auto) Eos # (Auto) Baso # (Auto) Abs Immat Gran (auto) Absolute Neuts (auto) Absolute Nucleated RBC Nucleated RBC % (auto) Sodium Potassium Chloride Carbon Dioxide Anion Gap BUN Creatinine Estim Creat Clear Calc Estimated GFR POC Glucose 117 H Random Glucose Estimat Average Glucose Hemoglobin A1c % Calcium Total Bilirubin AST ALT Alkaline Phosphatase Total Protein Albumin Triglycerides Cholesterol LDL Cholesterol, Calc HDL Cholesterol Vitamin B12 Folate Urine Opiates Screen Not Detected Urine Fentanyl Screen Not Detected Ur Barbiturates Screen Not Detected Ur Phencyclidine Scrn Not Detected Ur Amphetamines Screen Not Detected U Benzodiazepines Scrn Not Detected Urine Cocaine Screen Not Detected U Marijuana (THC) Screen POSITIVE H Ethyl Alcohol COVID-19 ([facility]THYA) Negative COVID-[place] [employer] See Note 04/02/21 04/02/21 04/02/21 08:06 08:06 08:06 WBC RBC Hgb Hct MCV MCH MCHC RDW Plt Count MPV Immature Gran % (Auto) Neut % (Auto) Lymph % (Auto) [place] % (Auto) Eos % (Auto) Baso % (Auto) Lymph # (Auto) [place] # (Auto) Eos # (Auto) Baso # (Auto) Abs Immat Gran (auto) Absolute Neuts (auto) Absolute Nucleated RBC Nucleated RBC % (auto) Sodium Potassium Chloride Carbon Dioxide Anion Gap BUN Creatinine Estim Creat Clear Calc Estimated GFR POC Glucose Random Glucose Estimat Average Glucose 105 Hemoglobin A1c % 5.3 Calcium Total Bilirubin AST ALT Alkaline Phosphatase Total Protein Albumin Triglycerides 92 Cholesterol 180 LDL Cholesterol, Calc 122 HDL Cholesterol 40 Vitamin B12 531 Folate 12.2 Urine Opiates Screen Urine Fentanyl Screen Ur Barbiturates Screen Ur Phencyclidine Scrn Ur Amphetamines Screen U Benzodiazepines Scrn Urine Cocaine Screen U Marijuana (THC) Screen Ethyl Alcohol COVID-19 ([facility]) COVID-19 Clin Com DS: Summary Hospital Course Hospital Course: Pt is a 45 yo male with hx of childhood trauma, depression, PTSD, who presents for dysregulated mood, in face of 1 year anniversary of beloved mothers and relational strife with family friends; this past week he got intoxicated, scared his grabbing her and yelling and subsequently became suicidal.In ED, he got triggered by security and needed chemical restraint, however?by the time he got to unit, he was calm and cooperative and remained so throughout admission. Pt signed CV. ?Pt reported SI (first time he's ever had any) had fully resolved; pt was remorseful for his behavior and wanted help. Patients was also present on the unit for admission and corroborated patients reporting. She agreed he needed help with having easily triggered emotions but also agreed that he was safe, and that she felt safe with him returning home. Pt diagnosed with Adjustment disorder with disturbance of mood and conduct in face of psychosocial stresses; he has no hx of nicholas or manic type episodes and denied depression. However he endorsed continuing PTSD symptoms (hyper-vigilance, avoidance of triggers, frequent flashbacks and nightmares almost nightly; he feels his quick temper is related to hx of childhood trauma which he has never really discussed. Patient agreed to start Prozac for anxiety/ptsd and Prazosin for nightmares (nightmares problematic and so did not want to wait to see if Prozac was sufficient to resolve); he also started low does serquel for anxiety/agitation. Pt remained in good mood future oriented, w/out any SI/HI appropriate with peers and staff, and demonstrating good behavioral and impulse control on the milue, despite a sometimes triggering environment, throughout his admission. Patient reported he was sleeping well and remained without nightmares, something he was very grateful to share; medications remained well tolerated and effective.? Patient said he felt much better and though feeling back to baseline, wanted to stay on the unit as long as his team thought it necessary; now stable though, his main focus was on establishing outpatient treatment and getting a therapist which he was happy to learn was scheduled.?Although benefiting from groups, Patient shared some anxiety about losing housing, saying that his landlord demands the rent money by Wednesday, as patient missed paying rent last weekend since he was in the hospital.? Patient said that has a job he needs to finish th at will give him enough hagen to pay rent; marketing copywriter discussed whether patient felt ready for discharge; pt was ambivalent, saying ultimately he was not going to worry about losing housing, that he'd find another place to live and that right now he did not want to leave before his medications were right. ? Composite Technician and team discussed this further with patient; team agrees that patient is currently stable and his agrees; at this point, patient's medication management and titrations were complete and that any further changes could be made as an outpt. Composite Technician appreciates patient's focus on treatment however team agreed that the repercussions of him losing housing outweighed the modest benefit patient would get by remaining on the unit another couple days.? It is worth noting that patient did not ask for discharge and it was only from marketing copywriter's continued inquiry that patient shared his rent/housing situation.? As mentioned, w/out SI/HI, stable and eager to continue treatment. Patient agrees with this plan.? Patient was not in imminent risk for harm to self or others and appropriate for discharge. Status at Discharge Functional status at discharge: independent ambulation Overall status at discharge: patient is back to baseline Time Spent with Patient Time attestation: Total time spent providing and/or coordinating discharge services: Time spent: Greater than 30 minutes Discharge Plan Discharge Patient Disposition: Home, Self-Care Discharge Diagnosis: Adjustment disorder with mixed disturbance of mood and conduct, in full remission; PTSD Referrals: Liseth Dumont [Other] - 04/07/21 11:00 am (Initial Assessment for Therapy Appointment at [facility] (In-person)) Annelise Baker [Other] - 04/30/21 3:00 pm (Psychiatric evaluation Appointment with Psychiatric Medication Provider In-office) Annelise Baker [Other] - 05/28/21 10:20 am (Medication Management Appointment Appointment in office with psychiatric medication provider) [facility] [Other] - 1 Day (Referral to [facility] for CSP worker Patient will need to follow-up after discharge from [facility].) Kranthi Varner FNP-BC [Primary Care Provider] - 1 Week (office aware of discharge and will be calling you at home for follow-up appointment.) Discharge Medications: New doxycycline hyclate 100 mg Tablet 100 mg PO BID 5 Days Qty: 9 RF: 0 prazosin 1 mg Capsule 1 mg PO BEDTIME 30 Days Qty: 30 RF: 0 fluoxetine 20 mg Capsule 20 mg PO DAILY 30 Days Qty: 30 RF: 0 quetiapine 25 mg Tablet 25 mg PO TID PRN (Reason: moderate anxiety) 30 Days Qty: 60 RF: 0 Continued oxycodone 5 mg tablet 5 mg PO Q6H PRN (Reason: pain) Qty: 10 RF: 0 ibuprofen 600 mg tablet 600 mg PO Q6H PRN (Reason: pain) Qty: 20 RF: 0 lidocaine 4 % adhesive patch,medicated 1 patch topical DAILY PRN (Reason: pain) Qty: 10 RF: 0 Discontinued ibuprofen 600 mg tablet 600 mg PO Q6H PRN (Reason: pain) Qty: 30 RF: 0 diazepam [Valium] 5 mg tablet 5 mg PO TID PRN (Reason: muscle spasm) Qty: 10 RF: 0 prednisone 20 mg tablet 40 mg PO DAILY 4 Days Qty: 8 RF: 0 Discharge Orders: Discharge Order (Routine); Ordered 04/04/21 Ordered By: Norberto Gonzalez Diet: regular diet Activity on Discharge: As tolerated Stand Alone Forms: Patient Portal Discharge page, Community Support Care Plan Goals: Maintain mood and safe behaviors Take medications as prescribed Continue to pursue sobriety Practice coping skills Continue with outpatient providers and reach out to them as needed Health Concerns: Mood stability and behaviors Plan of Treatment: Follow up with your psychiatric provider and other outpatient providers regarding above concerns Take medications as prescribed Assessment: Risk assessment at time of discharge:? Patient was interviewed prior to discharge and found to be fully oriented and without any SI or HI. Patient has insight and demonstrates good judgment in terms of wanting to pursue treatment. Patient is not in imminent risk of harm to self or others and has a safety plan that includes presenting to the closest ER or calling 911 if feeling unsafe.? Patient has been observed closely by nursing and unit staff throughout admissio n; patient has not engaged in any behaviors that suggest dangerousness to self or others and has demonstrated appropriate behaviors and impulse control Discharge Date/Time: 04/04/21 11:15
[2021-04-03 21:30] VITALS: BP 136/78; PULSE 68; TEMP 36.5
[2021-04-03 21:38] VITALS: BP 136/78; PULSE 68
[2021-04-03] MEDS: Prazosin HCL 1 MG CAPSULE PO (21:38)
[2021-04-03] MEDS: QUEtiapine Fumarate 25 MG TABLET PO (21:39)
[2021-04-04 06:00] VITALS: BP 137/58; PULSE 97; RESP 18; TEMP 36.3; O2SAT 99
[2021-04-04] MEDS: FLUoxetine HCl 20 MG CAPSULE PO (08:29)
== END 2021-04-04 11:15 | disposition home or self-care (01) | DRG 755 ==
LOC: HO.ED 03-30 01:06 → HO.PM5 04-01 16:12
PROVIDERS: Nurse Practitioner Family; Social Worker; Admitting Provider Psychiatry & Neurology Psychiatry; Emergency Provider Internal Medicine; PCP Nurse Practitioner Family; Visit Provider Psychiatry & Neurology Psychiatry
DX: F43.25 Adjustment disorder with mixed disturbance of emotions and conduct (principal); R45.851 Suicidal ideations; F43.12 Post-traumatic stress disorder, chronic; F17.210 Nicotine dependence, cigarettes, uncomplicated; Z71.6 Tobacco abuse counseling; Z20.822 Contact with and (suspected) exposure to COVID-19; Z88.0 Allergy status to penicillin; Z79.899 Other long term (current) drug therapy
CPT/HCPCS: 36415; 80053; 80061; 80307; 82077; 82607; 82746; 82947; 83036; 85025; 87635; 93005; 99285; J1200; Q0163

== ENCOUNTER 2021-08-27 08:57 | Emergency (ER) | payer OTHER, SELFPAY ==
--- NOTE | ~2021-08-27 | XR_ITS ---
EXAMINATION: XR LUMBOSACRAL SPINE CLINICAL INFORMATION: History of fusion COMPARISON: September 30, 2018 and January 24, 2018 TECHNIQUE: Three views of the lumbosacral spine. FINDINGS: Pedicle screws are seen within L4 and S1 with rods spanning L4-S1. Disc spaces are seen at the L4-L5 and L5-S1 level. There is some degenerative spurring seen L3-S1 with what appears be some degree of bony fusion L4-S1. No acute fracture, spondylolisthesis, or spondylolysis is appreciated. No destructive bony lesions are seen. No evidence of fusion or widening of the sacroiliac joints. Appearance is similar to CT scan of September 30, 2018 XR/XR lumbar spine 2-3V IMPRESSION: Stable appearance of the lumbar spine status post pedicle screw and mona fixation at the L4 and S1 levels.
[2021-08-27 09:01] VITALS: BP 110/72; PULSE 78; RESP 18; TEMP 36.1; O2SAT 99; BMI 25.0
--- NOTE | 2021-08-27 09:06 | ED.BACK ---
HPI - Back Pain/Injury General Chief Complaint: Back Pain/Injury Stated Complaint: back pain Time Seen by Provider: 08/27/21 09:06 Source: patient Mode of arrival: ambulatory Limitations: no limitations History of Present Illness HPI Narrative: 45 y/o male with history of chronic low back pain s/p lumbar fusion 4 years ago presents to the ER for evaluation of his chronic pain. He reports the pain has been constant since after his surgery and just sucks it up. He has chronic LLE numbness. He saw his PCP a few months ago with plan to get XRs to assess the positioning of the hardware but this was never done. He reports the pain is in his middle lower back and he has numbness in both of his legs, L>R that is not new. He denies any weakness, saddle paresthesias, bowel or bladder incontinence. He does not take any medication for the pain. He has not seen his surgeon since the time of the operation. MD elicited complaint: back pain Pertinent past history: prior back pain Onset (ago): year(s) Timing: constant Severity: moderate Similar Symptoms Previously: Yes Quality: stabbing Location: lumbar spine Radiation: left upper leg, right upper leg, left leg below the knee and right leg below the knee Exacerbating factors: movement Relieving factors: none Context: unknown Associated symptoms: loss of sensation in lower extremities Work related injury: No Related Data Home Medications Medication Instructions Recorded Confirmed aripiprazole 15 mg tablet 15 mg PO DAILY 08/14/21 clonazepam 0.5 mg tablet 0.5 mg PO DAILY PRN 08/14/21 clonidine HCl 0.1 mg tablet 0.1 mg PO BID 08/14/21 fluoxetine 40 mg capsule 40 mg PO DAILY 08/14/21 trazodone 100 mg tablet 50 - 100 mg PO BEDTIME PRN 08/14/21 Previous Rx's Medication Instructions Recorded ibuprofen 600 mg tablet 600 mg PO Q6H PRN #20 tab 11/06/20 prazosin 1 mg capsule 1 mg PO BEDTIME 30 Days #30 cap 04/03/21 quetiapine 25 mg tablet 25 mg PO TID PRN 30 Days #60 tab 04/03/21 cyclobenzaprine 10 mg tablet 10 mg PO TID PRN #10 tab 08/27/21 prednisone 20 mg tablet 40 mg PO DAILY #10 tab 08/27/21 Allergies Allergy/AdvReac Type Severity Reaction Status Date / Time acetaminophen [Vicodin] Allergy Intermediate rash Verified 08/14/21 14:05 hydrocodone [From VICODIN] Allergy Intermediate RASH Verified 08/14/21 14:05 penicillin V Allergy Intermediate Unknown Verified 08/14/21 14:05 Penicillins [PENICILLINS] Allergy Intermediate HIVES Verified 08/14/21 14:05 Gadolinium-Containing Allergy Mild Pt Verified 08/14/21 14:05 Contrast Medi developed [GADOLINIUM-CONTAINING hives on CONTRAST] neck and chest, no other complications Review of Systems Review of Systems: Constitutional: No Fever, No Chills Cardiovascular: No Chest Pain, No SOB Gastrointestinal: No Nausea, No Vomiting, No abdominal Pain Genitourinary: No Dysuria, No Urinary Frequency, No Hematuria, No incontinence Musculoskeletal: + joint pain, + Myalgias Skin: No Skin Lesions, No rash Neuro: No Weakness, + Numbness, No Dizziness, No Headache Psych: No Anxiety/Panic, No Depression Heme/Lymph: No Bruising, No Lymphadenopathy PMFSH Past Medical History Medical History (Updated 08/27/21 @ 10:13 by GUADALUPE Mead) Adjustment disorder with mixed disturbance of emotions and conduct Back pain Chronic post-traumatic stress disorder (PTSD) Lumbar back pain Radicular leg pain Radicular pain of both lower extremities Surgical History Previous back surgery Family History Family History Father Unknown family medical history Mother Diabetes mellitus Heart failure HTN (hypertension) History of bilateral hip replacements Maternal Grandmother Diabetes mellitus HTN (hypertension) Social History Social History Household Members: Family and Children Housing: House Do you presently have visiting nurse or other home services: No Alcohol intake: current Alcohol intake frequency: a few times a month Patient Tobacco Use Status: Current everyday Tobacco user Tobacco use type: Cigarette Cigarettes Per Day: 7 e-Cigarette/Vaping Use: Never Used Second Hand Smoke Exposure: Yes Substance Use Type: Marijuana Advance Directives: No Advance Directives Information Provided: No service: No Current occupational status: unemployed Sexual orientation: Straight/Heterosexual Physical Exam Vital Signs: Vital Signs: Last Vital Signs Temp 96.9 F 08/27/21 09:01 Pulse 78 08/27/21 09:01 Resp 18 08/27/21 09:01 BP 110/72 08/27/21 09:01 Pulse Ox 99 08/27/21 09:01 BMI result Body Mass Index 25.0 Appearance: Alert. Oriented X3. No acute distress. HEENT: normal inspection CVS: Normal heart rate and rhythm. Pulses normal. Respiratory: No respiratory distress. Skin: Skin warm and dry. Normal skin color. Normal skin turgor. No rashes. Back: Normal inspection, well-healed surgical scar, tenderness of the low lumbar spine, limited flexion due to pain. Negative straight leg raise test. Extremities: Atraumatic x4, normal range of motion. Neuro: Oriented X 3. No motor deficit. No sensory deficit. steady gait. Course Course Course Narrative: 45-year-old male presents to the ER with chronic back pain for the last for 5 years. He had surgery on his lower lumbar spine and has had issues including pain and numbness in his legs since then. He denies any new injury or exacerbating event. He is not taking any medications for the pain. He denies any bladder or bowel issues, no new weakness or numbness. He saw his PCP and was post to get x-rays to evaluate the positioning of the hardware but this was not done yet. He would like that to get done today. Reevaluation(s) Reevaluation #1: X-ray shows stable positioning of the hardware. Pain slightly improved with a dose of Toradol. He was encouraged to follow back up with his primary care doctor, he may need an MRI for further evaluation of his ongoing symptoms. He was also encouraged to follow back up with his surgeon given his symptoms have been ongoing since the surgery 4 years ago. He is in agreement with plan. he is stable for DC home. Critical Care Time Critical Care Time Critical Care Time: No Discharge Plan Discharge Clinical Impression: Lumbar radiculopathy Patient Disposition: Home, Self-Care Instructions: Chronic Back Pain (DC), Lower Back Exercises (ED) Additional Instructions: Your x-ray today showed stable position of the hardware in your lower back. Recommend following up with her primary care soon as possible you may need an MRI for further evaluation of your symptoms. No bending, lifting or twisting. Use ice several times per day for 20 minutes at a time for the next 48 hours and then change to heat. Take medications as prescribed to help with pain and discomfort. Follow up with your Primary Care Doctor this week. If your pain worsens, if you develop new numbness, tingling, weakness, loss of function or incontinence call 911 or come back to the ER right away for evaluation. Prescriptions: New cyclobenzaprine 10 mg tablet 10 mg PO TID PRN (Reason: muscle spasm) Qty: 10 0RF prednisone 20 mg tablet 40 mg PO DAILY Qty: 10 0RF No Action ibuprofen 600 mg tablet 600 mg PO Q6H PRN (Reason: pain) Qty: 20 0RF prazosin 1 mg Capsule 1 mg PO BEDTIME 30 Days Qty: 30 0RF Protocol: Hold for SBP< HOLD for SBP < : 90 quetiapine 25 mg Tablet 25 mg PO TID PRN (Reason: moderate anxiety) 30 Days Qty: 60 0RF clonidine HCl 0.1 mg tablet 0.1 mg PO BID 0RF fluoxetine 40 mg capsule 40 mg PO DAILY 0RF clonazepam 0.5 mg tablet 0.5 mg PO DAILY PRN (Reason: panic attack) 0RF trazodone 100 mg tablet 50 - 100 mg PO BEDTIME PRN (Reason: insomnia) 0RF aripiprazole 15 mg tablet 15 mg PO DAILY 0RF
[2021-08-27] MEDS: Ketorolac Tromethamine 30 MG/ML VIAL IM (09:35)
== END 2021-08-27 10:30 | disposition home or self-care (01) ==
PROVIDERS: Emergency Provider Emergency Medicine; PCP Nurse Practitioner Family
DX: M54.50 Low back pain, unspecified (principal); M54.16 Radiculopathy, lumbar region; F17.210 Nicotine dependence, cigarettes, uncomplicated; Z71.6 Tobacco abuse counseling; Z79.899 Other long term (current) drug therapy
CPT/HCPCS: 72100; 96372; 99283; 99284; J1885

== ENCOUNTER 2021-09-02 08:34 | Emergency (ER) | payer OTHER, SELFPAY ==
[2021-09-02 09:26] VITALS: BP 114/72; PULSE 73; RESP 16; TEMP 36.3; O2SAT 98; BMI 24.2
--- NOTE | 2021-09-02 09:59 | ED_ITS ---
HPI - Back Pain/Injury General Chief Complaint: Back Pain/Injury Stated Complaint: Back pain/leg numbness Time Seen by Provider: 09/02/21 09:48 Source: patient Mode of arrival: ambulatory History of Present Illness HPI Narrative: 45-year-old male with a H chronic back pain s/p lumbar fusion 4 years ago, PTSD, adjustment disorder, presenting to the ED complaining of acute on chronic low back pain radiating down bilateral lower extremities with associated bilateral LE numbness/tingling. Reports pain unchanged from chronic. Was evaluated in the ED 6 days ago for similar symptoms has been taking Prednisone/Flexeril with mild relief. Denies new injury/fall or trauma, weakness, urinary incontinence, urinary retention, fever, chills MD elicited complaint: back pain Pertinent past history: prior back pain Onset (ago): month(s) Related Data Home Medications Medication Instructions Recorded Confirmed aripiprazole 15 mg tablet 15 mg PO DAILY 08/14/21 clonazepam 0.5 mg tablet 0.5 mg PO DAILY PRN 08/14/21 clonidine HCl 0.1 mg tablet 0.1 mg PO BID 08/14/21 fluoxetine 40 mg capsule 40 mg PO DAILY 08/14/21 trazodone 100 mg tablet 50 - 100 mg PO BEDTIME PRN 08/14/21 Previous Rx's Medication Instructions Recorded ibuprofen 600 mg tablet 600 mg PO Q6H PRN #20 tab 11/06/20 prazosin 1 mg capsule 1 mg PO BEDTIME 30 Days #30 cap 04/03/21 quetiapine 25 mg tablet 25 mg PO TID PRN 30 Days #60 tab 04/03/21 cyclobenzaprine 10 mg tablet 10 mg PO TID PRN #10 tab 08/27/21 prednisone 20 mg tablet 40 mg PO DAILY #10 tab 08/27/21 lidocaine 5 % topical patch 1 patch TOPICAL DAILY PRN #30 ea 09/02/21 (Lidoderm) MDD remove after 12 hours naproxen 500 mg tablet 500 mg PO BID PRN 10 Days #20 tab 09/02/21 Allergies Allergy/AdvReac Type Severity Reaction Status Date / Time acetaminophen [Vicodin] Allergy Intermediate rash Verified 08/14/21 14:05 hydrocodone [From VICODIN] Allergy Intermediate RASH Verified 08/14/21 14:05 penicillin V Allergy Intermediate Unknown Verified 08/14/21 14:05 Penicillins [PENICILLINS] Allergy Intermediate HIVES Verified 08/14/21 14:05 Gadolinium-Containing Allergy Mild Pt Verified 08/14/21 14:05 Contrast Medi developed [GADOLINIUM-CONTAINING hives on CONTRAST] neck and chest, no other complications Review of Systems Review of Systems: Constitutional: No Fever, No Chills ENT/Mouth: No Ear Pain, No Nasal Congestion, No sore throat Cardiovascular: No Chest Pain, No SOB Respiratory: No Cough, No Sputum Gastrointestinal: No Nausea, No Vomiting, No Diarrhea, No Constipation, No Abdominal pain Genitourinary: No Dysuria, No Urinary Frequency, No Urinary Incontinence/retention, No Flank Pain Musculoskeletal: + joint pain, No Myalgias, No Joint Swelling Skin: No Skin Lesions, No rash Neuro: No Weakness, + Numbness, + Paresthesias Yes all other systems are reviewed and are negative Neurologic: Denies Sensory deficit (Neuro) [facility] Past Medical History Attestation statement: The following information was validated with the patient. Medical History Adjustment disorder with mixed disturbance of emotions and conduct Back pain Chronic post-traumatic stress disorder (PTSD) Lumbar back pain Radicular leg pain Radicular pain of both lower extremities Surgical History Previous back surgery Family History Family History Father Unknown family medical history Mother Diabetes mellitus Heart failure HTN (hypertension) History of bilateral hip replacements Maternal Grandmother Diabetes mellitus HTN (hypertension) Social History Social History Household Members: Family and Children Housing: House Do you presently have visiting nurse or other home services: No Alcohol intake: current Alcohol intake frequency: a few times a month Patient Tobacco Use Status: Current everyday Tobacco user Tobacco use type: Cigarette Cigarettes Per Day: 7 e-Cigarette/Vaping Use: Never Used Second Hand Smoke Exposure: Yes Substance Use Type: Marijuana Advance Directives: No Advance Directives Information Provided: No service: No Current occupational status: unemployed Sexual orientation: Straight/Heterosexual Physical Exam Vital Signs: Vital Signs: Last Vital Signs Temp 97.3 F 09/02/21 09:26 Pulse 73 09/02/21 09:26 Resp 16 03/22/22 09:26 BP 114/72 09/02/21 09:26 Pulse Ox 98 09/02/21 09:26 BMI result Body Mass Index 24.2 Const: General: cooperative, healthy appearing, no acute distress, alert and awake Orientation/consciousness: patient oriented x3 Limitations: no med[place] itations HEENT: Head: Yes normal to inspection Ears: hearing grossly normal bilaterally General nose exam: Normal external nose present Face and sinus: Yes normal facial exam Eyes: General: appearance normal, both eyes and all related structures EOM: EOMs intact bilaterally Neck: Other: No midline cervical spinous tenderness Neck: Yes normal visual inspection Resp: Effort & Inspection: normal respiratory effort and no respiratory distress Auscultation: clear to auscultation bilaterally Cardio: Rate: regular rate Heart sounds: S1 normal heart sound present and S2 normal heart sound present GI: Inspection: Yes normal to inspection Palpation (GI): Soft to palpation, nontender, no guarding and not rigid : General: Yes no CVA tenderness Back/Spine/Pelvis: Other: No midline thoracic/lumbar spinous tenderness. Bilateral lumbar paraspinal/MSK tenderness to palpation reproducing subjective complaints Back: no CVA tenderness Skin: Rashes: no rashes Wounds: no wounds Neuro: Other: Ambulating with steady gait, strength intact throat, no saddle anesthesia General: patient oriented x3, gait normal, tone normal and moves all extremities Gait exam (Neuro): Normal gait present Motor exam (neuro): 5/5 motor strength present throughout Sensory Exam: No Sensory deficit (Neuro) Extrem: General: Yes normal to inspection MDM - Back Pain/Injury MDM Narrative Medical decision making narrative: 45-year-old male with a PMH chronic back pain s/p lumbar fusion 4 years ago, PTSD, adjustment disorder, presenting to the ED complaining of acute on chronic low back pain radiating down bilateral lower extremities with associated bilateral LE numbness/tingling. On exam vital signs stable, NAD/nontoxic, no midline spinous tenderness, no red flag symptoms. Likely acute on chronic pain/lumbar radiculopathy versus sciatica. Low concern for cauda equina or cord compression. Discussed with patient at length this acute on chronic pain does not require opiates and needs to follow-up with specialist/PCP Discussed worrisome signs and symptoms and strict return precautions, he verbalized understanding feel safe for discharge home at this time Differential Diagnosis Differential diagnosis: Likely lumbar radiculopathy, sciatica and strain of lumbar region Medical Records Attestation: I reviewed the patient's medical records. Lab Data Attestation: I reviewed the patient's lab results. Discharge Plan Discharge Clinical Impression: Lumbar radiculopathy Patient Disposition: Home, Self-Care Instructions: Lumbar Radiculopathy (ED) Additional Instructions: Your pain is likely musculoskeletal continue taking previously presecribed Flexeril is a muscle relaxer, take at night as it makes you drowsy, do not drive, drink alcohol, or operate machinery while taking it Naproxen as an anti-inflammatory / pain medication, similar to ibuprofen take with food Lidoderm patches are numbing patches, apply to painful area In addition take Tylenol at home If symptoms persist or worsen, pain becomes unbearable, you developed urinary retention or incontinence, or weakness return to the ED Prescriptions: New lidocaine [Lidoderm] 5 % adhesive patch,medicated 1 patch topical DAILY MDD remove after 12 hours PRN (Reason: pain) Qty: 30 0RF Rx Instructions: leave on most painful area for up to 12 hrs naproxen 500 mg tablet 500 mg PO BID PRN (Reason: pain) 10 Days Qty: 20 0RF No Action ibuprofen 600 mg tablet 600 mg PO Q6H PRN (Reason: pain) Qty: 20 0RF cyclobenzaprine 10 mg tablet 10 mg PO TID PRN (Reason: muscle spasm) Qty: 10 0RF prednisone 20 mg tablet 40 mg PO DAILY Qty: 10 0RF prazosin 1 mg Capsule 1 mg PO BEDTIME 30 Days Qty: 30 0RF Protocol: Hold for SBP< HOLD for SBP < : 90 quetiapine 25 mg Tablet 25 mg PO TID PRN (Reason: moderate anxiety) 30 Days Qty: 60 0RF clonidine HCl 0.1 mg tablet 0.1 mg PO BID 0RF fluoxetine 40 mg capsule 40 mg PO DAILY 0RF clonazepam 0.5 mg tablet 0.5 mg PO DAILY PRN (Reason: panic attack) 0RF trazodone 100 mg tablet 50 - 100 mg PO BEDTIME PRN (Reason: insomnia) 0RF aripiprazole 15 mg tablet 15 mg PO DAILY 0RF Referrals: Kendra Abraham MD [Physician] - 2 days Stand Alone Forms: Work/School Release
== END 2021-09-02 10:16 | disposition home or self-care (01) ==
PROVIDERS: Emergency Provider Emergency Medicine Emergency Medical Services; PCP Nurse Practitioner Family
DX: M54.16 Radiculopathy, lumbar region (principal); M54.50 Low back pain, unspecified; F17.200 Nicotine dependence, unspecified, uncomplicated
CPT/HCPCS: 99283

== ENCOUNTER 2021-12-18 14:55 | Emergency (ER) | payer OTHER, SELFPAY ==
--- NOTE | ~2021-12-18 | XR_ITS ---
EXAMINATION: XR KNEE, LEFT CLINICAL INFORMATION: Left knee pain COMPARISON: None TECHNIQUE: Four views of the left knee. FINDINGS: Bones and soft tissues are unremarkable. No fracture or joint effusion. Alignment is anatomic. Joint spaces are well maintained. No abnormal soft tissue calcification. XR/XR knee LT 3V IMPRESSION: No significant abnormality is seen.
[2021-12-18 15:11] VITALS: BP 97/65; PULSE 73; RESP 20; TEMP 36.7; O2SAT 96; BMI 23.3
--- NOTE | 2021-12-18 18:28 | ED.LOWEXIN ---
HPI - Extremity Injury (Lower) General Chief Complaint: Extremity Injury, Lower Stated Complaint: L leg severe pain Time Seen by Provider: 12/18/21 17:47 Source: patient Mode of arrival: ambulatory Limitations: no limitations History of Present Illness HPI Narrative: This is a 46-year-old male presenting to the emergency department with left-sided atraumatic knee pain x3 weeks. Patient tells me that this pain is intermittent in nature, he tells me it is worse with ambulation and worse with straightening his. 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 This pain has made it really hard for him to work. He tells me that he has never had trauma to this knee before and he has never had any surgeries to that side. Patient tells me decided to come in today because he feels like he can barely put weight on his left lower extremity. Denies numbness and tingling. Patient denies fevers, chills, chest pain, shortness of breath, nausea, vomiting, recent illness, changes in urinates. MD complaint: other (Knee Pain ) Onset (ago): unknown Type of Injury: unknown Place: home Severity: severe Relieving factors: immobilization Exacerbating factors: weight bearing, movement and other (knee extension ) Other symptoms: none Related Data Home Medications Medication Instructions Recorded Confirmed aripiprazole 15 mg tablet 15 mg PO DAILY 08/14/21 clonazepam 0.5 mg tablet 0.5 mg PO DAILY PRN panic attack 08/14/21 clonidine HCl 0.1 mg tablet 0.1 mg PO BID 08/14/21 fluoxetine 40 mg capsule 40 mg PO DAILY 08/14/21 trazodone 100 mg tablet 50 - 100 mg PO BEDTIME PRN insomnia 08/14/21 Previous Rx's Medication Instructions Recorded ibuprofen 600 mg tablet 600 mg PO Q6H PRN pain #20 tabs 11/06/20 prazosin 1 mg capsule 1 mg PO BEDTIME 30 days #30 caps 04/03/21 quetiapine 25 mg tablet 25 mg PO TID PRN moderate anxiety 04/03/21 30 days #60 tabs cyclobenzaprine 10 mg tablet 10 mg PO TID PRN muscle spasm #10 08/27/21 tabs prednisone 20 mg tablet 40 mg PO DAILY #10 tabs 08/27/21 lidocaine 5 % topical patch 1 patch topical DAILY PRN pain #30 09/02/21 (Lidoderm) ea naproxen 500 mg tablet 500 mg PO BID PRN pain 10 days #20 09/02/21 tabs Allergies Allergy/AdvReac Type Severity Reaction Status Date / Time acetaminophen [Vicodin] Allergy Intermediate rash Verified 08/14/21 14:05 hydrocodone [From VICODIN] Allergy Intermediate RASH Verified 08/14/21 14:05 penicillin V Allergy Intermediate Unknown Verified 08/14/21 14:05 Penicillins [PENICILLINS] Allergy Intermediate HIVES Verified 08/14/21 14:05 Gadolinium-Containing Allergy Mild Pt Verified 08/14/21 14:05 Contrast Medi developed [GADOLINIUM-CONTAINING hives on CONTRAST] neck and chest, no other complications Review of Systems Review of Systems: Constitutional : No Weight loss, No Fever, No Chills, No Fatigue, No Malaise ENT/Mouth : No sore throat, No Rhinorrhea Eyes: No Eye Pain, No Swelling, No Redness Cardiovascular : No Chest Pain, No SOB, No Dyspnea on Exertion, No Orthopnea, No Edema, No Palpitations Respiratory : No Cough, No Sputum, No Wheezing Gastrointestinal : No Nausea, No Vomiting, No Diarrhea, No Constipation, No abdominal Pain, No Hematochezia, No Melena Genitourinary : No Dysuria, No Urinary Frequency, No Hematuria, Musculoskeletal : + joint pain, No Myalgias, No Joint Swelling Skin : No Skin Lesions, No rash Neuro : No Weakness, No Numbness, No Dizziness, No Headache All other systems reviewed and are negative Yes all other systems are reviewed and are negative [facility] Past Medical History Attestation statement: The following information was validated with the patient. Source: old records reviewed and nursing notes reviewed Medical History Adjustment disorder with mixed disturbance of emotions and conduct Back pain Chronic post-traumatic stress disorder (PTSD) Lumbar back pain Radicular leg pain Radicular pain of both lower extremities Surgical History Previous back surgery Family History Family History Father Unknown family medical history Mother Diabetes mellitus Heart failure HTN (hypertension) History of bilateral hip replacements Maternal Grandmother Diabetes mellitus HTN (hypertension) Social History Social History Household Members: Family and Children Housing: House Do you presently have visiting nurse or other home services: No Alcohol intake: current Alcohol intake frequency: a few times a month Patient Tobacco Use Status: Current everyday Tobacco user Tobacco use type: Cigarette Cigarettes Per Day: 7 e-Cigarette/Vaping Use: Never Used Second Hand Smoke Exposure: Yes Substance Use Type: Marijuana Advance Directives: No Advance Directives Information Provided: No service: No Current occupational status: unemployed Sexual orientation: Straight/Heterosexual Physical Exam Vital Signs: Vital Signs: Last Vital Signs Temp 98.1 F 12/18/21 15:11 Pulse 73 12/18/21 15:11 Resp 20 12/18/21 15:11 BP 97/65 12/18/21 15:11 Pulse Ox 96 12/18/21 15:11 O2 Del Method 12/18/21 15:11 BMI result Body Mass Index 23.3 VSS Appearance: Alert.? Oriented X3.? No acute distress.? Head: Normocephalic, atraumatic, no step-offs or deformities Eyes: Pupils equal, round and reactive to light.? ENT: Pharynx normal.? Neck: Normal inspection.? Neck supple.? CVS: Normal heart rate and rhythm.? Pulses normal.? Respiratory: No respiratory distress.? Breath sounds normal.? Abdomen: Soft and nontender.? Skin: Skin warm and dry.? Normal skin color.? Normal skin turgor.? Extremities: 5/5 strength to bilateral upper and lower extremities 2+ DP PT and patellar pulses equal and b/l. Normal 2+ patellar reflex equal and b/l. negative anterior and posterior drawer, negative valgus and varus. Positive discomfort with Joe's . No overlying skin changes, no effusions or swelling noted b/l. No foot drop b/l. Neuro: Oriented X 3.? No motor deficit.? No sensory deficit. CN 2-12 intact Course Reevaluation(s) Reevaluation #1: X-ray with no acute findings. Educated patient that x-ray only looks at alignment, fractures, dislocations and significant soft tissue swelling educated patient that ligament or tendon injury could not be ruled out. Based off patient history and physical examination I advised him to follow-up with orthopedics for further evaluation. Neurovascular status intact. At this time patient will be discharged home with orthopedic follow-up. Advised him to take ibuprofen every 6 hours, Tylenol every 4 for pain or discomfort. He was given Yasir wrap and crutches comfortable discharge home MDM - Extremity Injury (Lower) MDM Narrative Medical decision making narrative: 0 46-year-old male presents with atraumatic knee pain x3 weeks, intermittent in nature. No known trauma to the area. Physical examination with discomfort with Joe test. no other abnormalities noted on exam. History and physical examination concerning for possible meniscus injury however unclear. Unlikely that this is gout, pseudogout or septic joint. Plan at this time is to obtain plain films. Medical Records Attestation: I reviewed the patient's medical records. Lab Data Attestation: I reviewed the patient's lab results. Critical Care Time Critical Care Time Critical Care Time: No Discharge Plan Discharge Clinical Impression: Knee pain, left Patient Disposition: Home, Self-Care Instructions: Knee Pain (ED) Additional Instructions: Take your medications as prescribed. If you were prescribed antibiotics today, it is important that you take your medication to their entirety, do not skip any doses, do not finish them early. Follow-up with your primary care provider this week. Please follow-up with orthopedics. Return to the emergency department with new or worsening symptoms. Such as fevers, chills, chest pain, shortness of breath, nausea, vomiting, dizziness, headache, vision changes, lethargy In case of emergency call 911 An x-ray was done today and it showed no significant findings. As we discussed x-rays look at fractures, dislocations, soft tissue swelling, none of these were identified. If pain continues you should follow-up with orthopedics as you may have a ligament or tendon injury. Please use crutches as indicated and wear the Yasir wrap as indicated. You can take ibuprofen every 6 hours Tylenol every 4 for pain or discomfort. FINDINGS: Bones and soft tissues are unremarkable. No fracture or joint effusion. Alignment is anatomic. Joint spaces are well maintained. No abnormal soft tissue calcification. XR/XR knee LT 3V IMPRESSION: No significant abnormality is seen. Prescriptions: No Action ibuprofen 600 mg tablet 600 mg PO Q6H PRN (Reason: pain) Qty: 20 0RF cyclobenzaprine 10 mg tablet 10 mg PO TID PRN (Reason: muscle spasm) Qty: 10 0RF prednisone 20 mg tablet 40 mg PO DAILY Qty: 10 0RF lidocaine [Lidoderm] 5 % adhesive patch,medicated 1 patch topical DAILY MDD remove after 12 hours PRN (Reason: pain) Qty: 30 0RF Rx Instructions: leave on most painful area for up to 12 hrs naproxen 500 mg tablet 500 mg PO BID PRN (Reason: pain) 10 Days Qty: 20 0RF prazosin 1 mg Capsule 1 mg PO BEDTIME 30 Days Qty: 30 0RF Protocol: Hold for SBP< HOLD for SBP < : 90 quetiapine 25 mg Tablet 25 mg PO TID PRN (Reason: moderate anxiety) 30 Days Qty: 60 0RF clonidine HCl 0.1 mg tablet 0.1 mg PO BID fluoxetine 40 mg capsule 40 mg PO DAILY clonazepam 0.5 mg tablet 0.5 mg PO DAILY PRN (Reason: panic attack) trazodone 100 mg tablet 50 - 100 mg PO BEDTIME PRN (Reason: insomnia) aripiprazole 15 mg tablet 15 mg PO DAILY Referrals: [facility] [place] [facility] [Provider Group] - 2 weeks Kranthi Varner FNP-BC [Primary Care Provider] - 2 days Stand Alone Forms: Work/School Release
[2021-12-18] MEDS: Ketorolac Tromethamine 15 MG/ML VIAL 30 MG IM (18:38)
== END 2021-12-18 19:30 | disposition home or self-care (01) ==
PROVIDERS: Emergency Provider Internal Medicine; PCP Nurse Practitioner Family
DX: M79.605 Pain in left leg (principal); F17.210 Nicotine dependence, cigarettes, uncomplicated; Z71.6 Tobacco abuse counseling; Z79.899 Other long term (current) drug therapy
CPT/HCPCS: 73562; 96372; 99283; 99284; J1885

== ENCOUNTER 2022-02-03 07:25 | Outpatient (REF) | payer OTHER, SELFPAY | END 2022-02-03 07:26 | disposition home or self-care (01) | LOC: HO.HOSX 07:25 | PROVIDERS: Visit Provider Physician Assistant | DX: Z13.89 Encounter for screening for other disorder (principal) ==

== ENCOUNTER 2022-02-27 | Outpatient (REF) | payer OTHER, SELFPAY | END 2022-02-27 00:01 | disposition home or self-care (01) | LOC: HO.HOSX | PROVIDERS: Visit Provider Physician Assistant | DX: Z13.89 Encounter for screening for other disorder (principal) ==

== ENCOUNTER 2022-05-12 10:25 | Outpatient (REF) | payer OTHER, SELFPAY ==
--- NOTE | ~2022-05-12 | XR_ITS ---
EXAMINATION: XR HIP, LEFT CLINICAL INFORMATION: Pain COMPARISON: Previous x-ray September 2014 TECHNIQUE: Two views of the left hip. FINDINGS: Bone alignment is normal. No fracture or dislocation. There is a small superior lateral acetabular osteophyte. Joint space is otherwise normal. Soft tissues are normal. There are postsurgical changes to the visualized lumbar sacral spine. XR/XR hip LT min 2V IMPRESSION: Mild degenerative changes.
== END 2022-05-12 10:26 | disposition home or self-care (01) ==
LOC: HO.HMGCX 10:25
PROVIDERS: Absent Provider Physician Assistant; PCP Nurse Practitioner Family; Visit Provider Nurse Practitioner Family
DX: M25.552 Pain in left hip (principal)
CPT/HCPCS: 73502

== ENCOUNTER 2022-08-04 17:48 | Emergency (ER) | payer OTHER, SELFPAY ==
--- NOTE | ~2022-08-04 | XR_ITS ---
EXAMINATION: XR CHEST CLINICAL INFORMATION: Chest pain COMPARISON: Chest x-ray 11/22/2019 TECHNIQUE: Frontal view of the chest was obtained. FINDINGS: The lungs are clear. No airspace consolidation, pleural effusion, or pneumothorax. The cardiomediastinal silhouette is within normal limits. No acute osseous injury. XR/XR chest 1V IMPRESSION: No acute pulmonary process.
--- NOTE | 2022-08-04 17:48 | ECG_ITS ---
Test Reason : CHEST PAIN Blood Pressure : / mmHG Vent. Rate : 062 BPM Atrial Rate : 062 BPM P-R Int : 150 ms QRS Dur : 098 ms QT Int : 430 ms P-R-T Axes : 017 041 018 degrees QTc Int : 436 ms Normal sinus rhythm Incomplete right bundle branch block Borderline ECG When compared with ECG of 01-APR-2021 11:26, No significant change was found Referred By: Negar Holliday Electronically Signed By:LILIAN THOMPSON
[2022-08-04 17:51] VITALS: BP 150/77; PULSE 86; RESP 18; TEMP 35.8; O2SAT 97; BMI 27.4
--- NOTE | 2022-08-04 17:51 | ED_ITS ---
HPI - Chest Pain General Stated Complaint: Chest pain Related Data Home Medications Medication Instructions Recorded Confirmed aripiprazole 15 mg tablet 15 mg PO DAILY 08/14/21 clonazepam 0.5 mg tablet 0.5 mg PO DAILY PRN panic attack 08/14/21 clonidine HCl 0.1 mg tablet 0.1 mg PO BID 08/14/21 fluoxetine 40 mg capsule 40 mg PO DAILY 08/14/21 Previous Rx's Medication Instructions Recorded ibuprofen 600 mg tablet 600 mg PO Q6H PRN pain #20 tabs 11/06/20 prazosin 1 mg capsule 1 mg PO BEDTIME 30 days #30 caps 04/03/21 quetiapine 25 mg tablet 25 mg PO TID PRN moderate anxiety 04/03/21 30 days #60 tabs cyclobenzaprine 10 mg tablet 10 mg PO TID PRN muscle spasm #10 08/27/21 tabs naproxen 500 mg tablet 500 mg PO BID PRN pain 10 days #20 09/02/21 tabs Allergies Allergy/AdvReac Type Severity Reaction Status Date / Time acetaminophen [Vicodin] Allergy Intermediate rash Verified 06/30/22 08:05 hydrocodone [From VICODIN] Allergy Intermediate RASH Verified 06/30/22 08:05 penicillin V Allergy Intermediate Unknown Verified 06/30/22 08:05 Penicillins [PENICILLINS] Allergy Intermediate HIVES Verified 06/30/22 08:05 Gadolinium-Containing Allergy Mild Pt Verified 06/30/22 08:05 Contrast Medi developed [GADOLINIUM-CONTAINING hives on CONTRAST] neck and chest, no other complications PMFSH Past Medical History Medical History Adjustment disorder with mixed disturbance of emotions and conduct Back pain Chronic post-traumatic stress disorder (PTSD) Lumbar back pain Radicular leg pain Radicular pain of both lower extremities Surgical History Previous back surgery Family History Family History Father Unknown family medical history Mother Diabetes mellitus Heart failure HTN (hypertension) History of bilateral hip replacements Maternal Grandmother Diabetes mellitus HTN (hypertension) Social History Social History (Updated 07/07/22 @ 16:19 by Rere L Maheu) Household Members: None Housing: Homeless Housing Other:: Staying [employer] ([employer] in [place])- working with [employer] Are you a primary urgent care technician to a significant other at home: No Do you presently have visiting nurse or other home services: No Alcohol intake: current Alcohol intake frequency: a few times a month Patient Tobacco Use Status: Current everyday Tobacco user Tobacco use type: Cigarette Cigarettes Per Day: 7 e-Cigarette/Vaping Use: Never Used Second Hand Smoke Exposure: Yes Substance Use Type: Marijuana service: No Current occupational status: unemployed Sexual orientation: Straight/Heterosexual Cognitive needs: No Hearing needs: No Vision needs: No Course Course Course Narrative: RME--46yo M w/PMHx PTSD, c/p intermittent CP x1 week worsening today w/radiating down LUE and assoc SOB. Also reports palpitations and mild N/V. Denies hx clots VSS, NAD EKG, Labs, COVID, CXR ordered Discharge Plan Discharge Prescriptions: No Action ibuprofen 600 mg tablet 600 mg PO Q6H PRN (Reason: pain) Qty: 20 0RF cyclobenzaprine 10 mg tablet 10 mg PO TID PRN (Reason: muscle spasm) Qty: 10 0RF naproxen 500 mg tablet 500 mg PO BID PRN (Reason: pain) 10 Days Qty: 20 0RF prazosin 1 mg Capsule 1 mg PO BEDTIME 30 Days Qty: 30 0RF Protocol: Hold for SBP< HOLD for SBP < : 90 quetiapine 25 mg Tablet 25 mg PO TID PRN (Reason: moderate anxiety) 30 Days Qty: 60 0RF clonidine HCl 0.1 mg tablet 0.1 mg PO BID fluoxetine 40 mg capsule 40 mg PO DAILY clonazepam 0.5 mg tablet 0.5 mg PO DAILY PRN (Reason: panic attack) aripiprazole 15 mg tablet 15 mg PO DAILY
[2022-08-04 18:03] LABS: MANUAL DIFF FLAG NO
[2022-08-04 18:15] LABS: Basophils Percent Auto 0.3 % (0-2); Eosinophils Absolute Auto 0.1 X10*3/uL (0.0-0.4); Eosinophils Percent Auto 1.6 % (0-4); Hematocrit 45.7 % (42.0-52.0); Imm Gran Abs Auto 0.01 X10*3/uL (0.00-0.03); Imm Gran Pct Auto 0.2 % (0.0-0.4); Lymphocytes Absolute Auto 3.7 X10*3/uL (1.2-4.9); Lymphocytes Percent Auto 58.7 % (20-40); Mean Corpuscular Hemoglobin 33.1 pg (27.0-33.0); Mean Corpuscular Volume 94.6 fL (80.0-98.0); Mean Platelet Volume 10.9 fL (9.4-12.4); Monocytes Absolute Auto 0.6 X10*3/uL (0.1-1.2); Neutrophils Absolute Auto 1.9 x10*3/uL (2.0-8.3); Neutrophils Percent Auto 30.2 % (45-73); Platelet Count 229 X10*3/uL (160-400); Red Blood Count 4.83 X10*6/uL (4.60-5.80); White Blood Count 6.3 X10*3/uL (4.8-10.8)
[2022-08-04 18:26] LABS: COVID-19 Test Negative (Negative); IDNOW Serial# BCCEAD1C
[2022-08-04 18:30] LABS: Alanine Aminotransferase 54 U/L (0-40); Albumin Level 4.5 g/dL (3.5-5.0); Alkaline Phosphatase 88 U/L (39-117); Anion Gap 12 (12-20); Aspartate Amino Transferase 32 U/L (5-37); Bilirubin Direct < 0.2 mg/dL (0.0-0.5); Bilirubin Total 0.8 mg/dL (0.0-1.0); Blood Urea Nitrogen 14 mg/dL (9-16); Calcium 9.4 mg/dL (8.4-10.2); Carbon Dioxide 29 mmol/L (22-29); Chloride 106 mmol/L (96-108); Creatinine Clr Calc Pharmacy 82.6; Estimated Glomerular Filt Rate > 60; Glucose Random 125 mg/dL (60-115); Potassium 4.3 mmol/L (3.3-5.1); Prothrombin Time 11.1 SEC (10.0-13.1); Sodium 143 mmol/L (135-145); Total Protein 7.4 g/dL (6.5-8.0); Troponin-I High Sensitivity 4.5 ng/L (<3.5-35.0)
[2022-08-04 18:44] LABS: TSH reflex Free T4 1.27 uIU/mL (0.32-4.0)
--- NOTE | 2022-08-04 22:12 | ED.CHESTPAIN ---
HPI - Chest Pain General Chief Complaint: Chest Pain Stated Complaint: Chest pain Time Seen by Provider: 08/04/22 21:57 Source: patient Mode of arrival: ambulatory Limitations: no limitations History of Present Illness HPI narrative: 46-year-old male came in for evaluation of left-sided chest pain for the past 5 days, pain was described as intermittent left-sided of the chest, radiate to the left arm sometimes, nonexertional can happen at rest time, no relieving factor, no aggravating factor, no other associated symptoms, no recent travel, no prolonged immobilization, no lower extremity swelling or tenderness. No chest wall trauma, no coughing. Related Data Home Medications Medication Instructions Recorded Confirmed aripiprazole 15 mg tablet 15 mg PO DAILY 08/14/21 clonazepam 0.5 mg tablet 0.5 mg PO DAILY PRN panic attack 08/14/21 clonidine HCl 0.1 mg tablet 0.1 mg PO BID 08/14/21 fluoxetine 40 mg capsule 40 mg PO DAILY 08/14/21 Previous Rx's Medication Instructions Recorded ibuprofen 600 mg tablet 600 mg PO Q6H PRN pain #20 tabs 11/06/20 prazosin 1 mg capsule 1 mg PO BEDTIME 30 days #30 caps 04/03/21 quetiapine 25 mg tablet 25 mg PO TID PRN moderate anxiety 04/03/21 30 days #60 tabs cyclobenzaprine 10 mg tablet 10 mg PO TID PRN muscle spasm #10 08/27/21 tabs naproxen 500 mg tablet 500 mg PO BID PRN pain 10 days #20 09/02/21 tabs Allergies Allergy/AdvReac Type Severity Reaction Status Date / Time acetaminophen [Vicodin] Allergy Intermediate rash Verified 06/30/22 08:05 hydrocodone [From VICODIN] Allergy Intermediate RASH Verified 06/30/22 08:05 penicillin V Allergy Intermediate Unknown Verified 06/30/22 08:05 Penicillins [PENICILLINS] Allergy Intermediate HIVES Verified 06/30/22 08:05 Gadolinium-Containing Allergy Mild Pt Verified 06/30/22 08:05 Contrast Medi developed [GADOLINIUM-CONTAINING hives on CONTRAST] neck and chest, no other complications Review of Systems Review of Systems: All other systems are reviewed and are negative Constitutional: Reports as per HPI and Reports no additional constitutional complaints Eyes: Reports as per HPI and Reports no additional eye complaints Reports system reviewed and no additional complaints, except as documented Cardiovascular: Reports as per HPI and Reports no additional cardiovascular complaints Respiratory: Reports as per HPI and Reports no additional respiratory complaints Gastrointestinal: Reports as per HPI and Reports no additional gastrointestinal complaints Genitourinary: Reports no additional female genitourinary complaints Musculoskeletal: Reports no additional musculoskeletal complaints Skin/Breast: Reports system reviewed and no additional complaints, except as docu Psychiatric: Reports no additional psychiatric complaints Endocrine: Reports no additional endocrine complaints Hematologic/Lymphatic: Reports no additional hematologic/lymphatic complaints Allergic/Immunologic: Reports no additional allergic/immunologic complaints Reports system reviewed and no additional complaints, except as documented and Reports Abnormal speech present [facility] Past Medical History Medical History Adjustment disorder with mixed disturbance of emotions and conduct Back pain Chronic post-traumatic stress disorder (PTSD) Lumbar back pain Radicular leg pain Radicular pain of both lower extremities Surgical History Previous back surgery Family History Family History Father Unknown family medical history Mother Diabetes mellitus Heart failure HTN (hypertension) History of bilateral hip replacements Maternal Grandmother Diabetes mellitus HTN (hypertension) Social History Social History Household Members: None Housing: Homeless Housing Other:: Staying [facility] Residential ([address])- working with [employer] Are you a primary intensive care unit registered nurse to a significant other at home: No Do you presently have visiting nurse or other home services: No Alcohol intake: current Alcohol intake frequency: a few times a month Patient Tobacco Use Status: Current everyday Tobacco user Tobacco use type: Cigarette Cigarettes Per Day: 7 e-Cigarette/Vaping Use: Never Used Second Hand Smoke Exposure: Yes Substance Use Type: Marijuana Advance Directives: No Advance Directives Information Provided: No service: No Current occupational status: unemployed Sexual orientation: Straight/Heterosexual Cognitive needs: No Hearing needs: No Vision needs: No Physical Exam Vital Signs: Vital Signs: Last Vital Signs Temp 96.4 F L 08/04/22 17:51 Pulse 86 08/04/22 17:51 Resp 18 08/04/22 17:51 BP 150/77 H 08/04/22 17:51 Pulse Ox 97 02/21/23 17:51 O2 Del Method 08/04/22 17:51 BMI result Body Mass Index 27.4 Vital signs have been reviewed as appeared to be correct. Blood pressure normal. Heart rate normal. Respiration rate normal. Temperature normal. Oxygen saturation normal. Appearance: Alert. Oriented X3. No acute distress. Head: Normal external exam. Normocephalic. Atraumatic. No Johnson signs noted. No raccoon eyes noted Eyes: PERRLA. EOMI. Conjunctiva and sclera normal. Eyelids normal. ENT: TM's Normal. Pharynx normal. Uvula midline. Moist mucous membranes. No trismus noted. No drooling noted. No muffled voice noted. Neck: Normal inspection. Neck supple. FROM. No adenopathy. Thyroid Normal. No meningeal signs. No neck mass noted. CVS: Normal heart rate and rhythm. Heart sound normal. No murmurs noted. Pulses normal throughout. Respiratory: No respiratory distress. Painless inspiration. Breath sounds normal. No wheezes/rales/rhonchi noted. Reproducible tenderness to the left lower edge of the sternum/sternocostal junction. No accessory muscle usage noted or decreased air movement noted. Abdomen: Soft and nontender. Bowel sounds normal in all 4 quadrants. No distention noted. No organomegaly noted. No visible injury noted. Back: No CVA tenderness. Full range of motion noted. Skin: Skin warm and dry. Normal skin color. Normal skin turgor. No rashes/lesions/lacerations noted. Extremities: No lower extremity edema. Extremities exhibit normal range of motion. Extremities nontender. Neuro: Oriented X 3. Cranial nerve exam: II-XII are grossly intact No motor deficit. No sensory deficit. Reflexes normal. Course Course Course Narrative: 46-year-old male presented with left-sided chest pain patient with HEART score of 3, currently patient has no pain on the physical exam patient has reproducible pain to the left side of the chest, otherwise unremarkable workup, patient will be sent to a electronic assembler group leader for further evaluation as an outpatient. Medical Decision Making Differential Diagnosis Differential Diagnoses: The differential diagnosis associated with the presentation includes (ACS, pneumonia, pneumothorax, myofascial pain syndrome, chest wall pain, costochondritis.) Lab Data MDM Lab Attestation statement: I reviewed the patient's lab results. 08/04/22 17:58 08/04/22 17:58 Labs: Lab Results 08/04/22 08/04/22 08/04/22 Range/Units 17:58 17:58 17:58 WBC 6.3 (4.8-10.8) X10*3/uL RBC 4.83 (4.60-5.80) X10*6/uL Hgb 16.0 (14.0-18.0) g/dl Hct 45.7 (42.0-52.0) % MCV 94.6 (80.0-98.0) fL MCH 33.1 H (27.0-33.0) pg MCHC 35.0 (31.0-36.0) g/dl RDW 13.0 (11.0-16.0) % Plt Count 229 (160-400) X10*3/uL MPV 10.9 (9.4-12.4) fL Immature Gran % (Auto) 0.2 (0.0-0.4) % Neut % (Auto) 30.2 L (45-73) % Lymph % (Auto) 58.7 H (20-40) % Mcpherson % (Auto) 9.0 (2-11) % Eos % (Auto) 1.6 (0-4) % Baso % (Auto) 0.3 (0-2) % Lymph # (Auto) 3.7 (1.2-4.9) X10*3/uL Mcpherson # (Auto) 0.6 (0.1-1.2) X10*3/uL Eos # (Auto) 0.1 (0.0-0.4) X10*3/uL Baso # (Auto) 0.0 (0.0-0.2) X10*3/uL Abs Immat Gran (auto) 0.01 (0.00-0.03) X10*3/uL Absolute Neuts (auto) 1.9 L (2.0-8.3) x10*3/uL Absolute Nucleated RBC 0.000 (0.0-0.012) X10*3/uL Nucleated RBC % (auto) 0.0 (0.0-0.2) /100WBC PT 11.1 (10.0-13.1) SEC INR 1.0 (0.9-1.1) Sodium 143 (135-145) mmol/L Potassium 4.3 (3.3-5.1) mmol/L Chloride 106 (96-108) mmol/L Carbon Dioxide 29 (22-29) mmol/L Anion Gap 12 (12-20) BUN 14 (9-16) mg/dL Creatinine 1.08 (0.5-1.4) mg/dL Estim Creat Clear Calc 82.6 Estimated GFR > 60 Random Glucose 125 H (60-115) mg/dL Calcium 9.4 (8.4-10.2) mg/dL Magnesium 2.0 (1.6-2.6) mg/dL Total Bilirubin 0.8 (0.0-1.0) mg/dL Direct Bilirubin < 0.2 (0.0-0.5) mg/dL AST 32 (5-37) U/L ALT 54 H (0-40) U/L Alkaline Phosphatase 88 (39-117) U/L Troponin I High Sens (<3.5-35.0) ng/L Total Protein 7.4 (6.5-8.0) g/dL Albumin 4.5 (3.5-5.0) g/dL TSH 1.27 (0.32-4.0) uIU/mL COVID-19 (CINTHYA) (Negative) COVID-19 Clin Com 08/04/22 08/04/22 Range/Units 17:58 17:58 WBC (4.8-10.8) X10*3/uL RBC (4.60-5.80) X10*6/uL Hgb (14.0-18.0) g/dl Hct (42.0-52.0) % MCV (80.0-98.0) fL MCH (27.0-33.0) pg MCHC (31.0-36.0) g/dl RDW (11.0-16.0) % Plt Count (160-400) X10*3/uL MPV (9.4-12.4) fL Immature Gran % (Auto) (0.0-0.4) % Neut % (Auto) (45-73) % Lymph % (Auto) (20-40) % Mcpherson % (Auto) (2-11) % Eos % (Auto) (0-4) % Baso % (Auto) (0-2) % Lymph # (Auto) (1.2-4.9) X10*3/uL Mcpherson # (Auto) (0.1-1.2) X10*3/uL Eos # (Auto) (0.0-0.4) X10*3/uL Baso # (Auto) (0.0-0.2) X10*3/uL Abs Immat Gran (auto) (0.00-0.03) X10*3/uL Absolute Neuts (auto) (2.0-8.3) x10*3/uL Absolute Nucleated RBC (0.0-0.012) X10*3/uL Nucleated RBC % (auto) (0.0-0.2) /100WBC PT (10.0-13.1) SEC INR (0.9-1.1) Sodium (135-145) mmol/L Potassium (3.3-5.1) mmol/L Chloride (96-108) mmol/L Carbon Dioxide (22-29) mmol/L Anion Gap (12-20) BUN (9-16) mg/dL Creatinine (0.5-1.4) mg/dL Estim Creat Clear Calc Estimated GFR Random Glucose (60-115) mg/dL Calcium (8.4-10.2) mg/dL Magnesium (1.6-2.6) mg/dL Total Bilirubin (0.0-1.0) mg/dL Direct Bilirubin (0.0-0.5) mg/dL AST (5-37) U/L ALT (0-40) U/L Alkaline Phosphatase (39-117) U/L Troponin I High Sens 4.5 (<3.5-35.0) ng/L Total Protein (6.5-8.0) g/dL Albumin (3.5-5.0) g/dL TSH (0.32-4.0) uIU/mL COVID-19 (CINTHYA) Negative (Negative) COVID-19 Clin Com See Note Independent Interpretation I performed an independent interpretation of an: EKG (Normal sinus rhythm normal axis deviation, normal intervals, incomplete RBBB, no significant change from previous EKG.) and Plain X-Ray (Though acute intrathoracic pathology.) Discharge Plan Discharge Clinical Impression: Costalchondritis, Atypical chest pain Patient Disposition: Home, Self-Care Instructions: Chest Pain (DC) Prescriptions: No Action ibuprofen 600 mg tablet 600 mg PO Q6H PRN (Reason: pain) Qty: 20 0RF cyclobenzaprine 10 mg tablet 10 mg PO TID PRN (Reason: muscle spasm) Qty: 10 0RF naproxen 500 mg tablet 500 mg PO BID PRN (Reason: pain) 10 Days Qty: 20 0RF prazosin 1 mg Capsule 1 mg PO BEDTIME 30 Days Qty: 30 0RF Protocol: Hold for SBP< HOLD for SBP < : 90 quetiapine 25 mg Tablet 25 mg PO TID PRN (Reason: moderate anxiety) 30 Days Qty: 60 0RF clonidine HCl 0.1 mg tablet 0.1 mg PO BID fluoxetine 40 mg capsule 40 mg PO DAILY clonazepam 0.5 mg tablet 0.5 mg PO DAILY PRN (Reason: panic attack) aripiprazole 15 mg tablet 15 mg PO DAILY Referrals: Kranthi Varner FNP- [Primary Care Provider] - Diomedes Mujica MD [Physician] -
== END 2022-08-04 22:28 | disposition home or self-care (01) ==
PROVIDERS: Physician Assistant; Emergency Provider Emergency Medicine; PCP Nurse Practitioner Family
DX: R07.89 Other chest pain (principal); M94.0 Chondrocostal junction syndrome [Tietze]; Z20.822 Contact with and (suspected) exposure to COVID-19; F17.210 Nicotine dependence, cigarettes, uncomplicated; Z79.899 Other long term (current) drug therapy
CPT/HCPCS: 36415; 71045; 80048; 80076; 83735; 84443; 84484; 85025; 85610; 87635; 93005; 99283

== ENCOUNTER 2022-08-12 09:16 | Emergency (ER) | payer OTHER, SELFPAY ==
--- NOTE | ~2022-08-12 | XR_ITS ---
EXAMINATION: XR CHEST CLINICAL INFORMATION: Chest pain COMPARISON: 08/04/2022 TECHNIQUE: 2 views of the chest were obtained. FINDINGS: Lungs clear. Heart and pulmonary vessels normal. No congestive change. No change from the prior study. XR/XR chest 2V IMPRESSION: No active disease.
--- NOTE | 2022-08-12 09:17 | ECG_ITS ---
Test Reason : chest pain Blood Pressure : / mmHG Vent. Rate : 105 BPM Atrial Rate : 105 BPM P-R Int : 130 ms QRS Dur : 096 ms QT Int : 360 ms P-R-T Axes : 081 043 057 degrees QTc Int : 475 ms Sinus tachycardia RSR' or QR pattern in V1 suggests right ventricular conduction delay Borderline ECG When compared with ECG of 04-AUG-2022 20:53, Vent. rate has increased BY 43 BPM Referred By: Generic ED Physician Electronically Signed By:SILVINO EID MD
[2022-08-12 09:24] VITALS: BP 141/74; PULSE 117; RESP 16; TEMP 36.9; O2SAT 97; BMI 28.4
[2022-08-12 09:52] LABS: Basophils Percent Auto 0.6 % (0-2); Eosinophils Absolute Auto 0.1 X10*3/uL (0.0-0.4); Eosinophils Percent Auto 1.7 % (0-4); Hematocrit 46.1 % (42.0-52.0); Hemoglobin 15.8 g/dl (14.0-18.0); Imm Gran Abs Auto 0.01 X10*3/uL (0.00-0.03); Imm Gran Pct Auto 0.2 % (0.0-0.4); Lymphocytes Absolute Auto 3.1 X10*3/uL (1.2-4.9); Lymphocytes Percent Auto 48.8 % (20-40); MANUAL DIFF FLAG NO; Mean Corpuscular HGB Conc 34.3 g/dl (31.0-36.0); Mean Corpuscular Hemoglobin 31.7 pg (27.0-33.0); Mean Corpuscular Volume 92.4 fL (80.0-98.0); Mean Platelet Volume 10.4 fL (9.4-12.4); Monocytes Absolute Auto 0.8 X10*3/uL (0.1-1.2); Monocytes Percent Auto 12.3 % (2-11); Neutrophils Absolute Auto 2.3 x10*3/uL (2.0-8.3); Neutrophils Percent Auto 36.4 % (45-73); Platelet Count 231 X10*3/uL (160-400); Red Blood Count 4.99 X10*6/uL (4.60-5.80); Red Cell Distribution Width 12.8 % (11.0-16.0); White Blood Count 6.4 X10*3/uL (4.8-10.8)
[2022-08-12 10:08] LABS: Anion Gap 11 (12-20); Blood Urea Nitrogen 15 mg/dL (9-16); Calcium 9.4 mg/dL (8.4-10.2); Carbon Dioxide 28 mmol/L (22-29); Chloride 107 mmol/L (96-108); Creatinine Clr Calc Pharmacy 83.2; Estimated Glomerular Filt Rate > 60; Glucose Random 109 mg/dL (60-115); Potassium 4.3 mmol/L (3.3-5.1); Sodium 142 mmol/L (135-145)
[2022-08-12 10:10] LABS: COVID-19 Test Negative (Negative); IDNOW Serial# BCCEAD1C
[2022-08-12 10:17] LABS: IDNOW Serial# 9DB6401D; Influenza A Negative (Negative); Influenza B2 Negative (Negative)
[2022-08-12 10:35] LABS: Troponin-I High Sensitivity < 3.5 ng/L (<3.5-35.0)
[2022-08-12 11:16] VITALS: BP 108/76; PULSE 76; RESP 12; TEMP 36.6; O2SAT 96
--- NOTE | 2022-08-12 11:22 | PC.NURSE ---
46 y/o M pw chest pain, sob, x1 week. was seen here for same symptoms and referred to a wind technician, however pt has not yet set up his appt. pt is aox3, VSS
--- NOTE | 2022-08-12 11:43 | ED.CHESTPAIN ---
HPI - Chest Pain General Chief Complaint: Chest Pain Stated Complaint: Chest pain Time Seen by Provider: 08/12/22 11:13 Source: patient Mode of arrival: ambulatory Limitations: no limitations History of Present Illness HPI narrative: Patient is a 46-year-old male who presents to emergency department for evaluation of chest pain. He states that he was seen in the emergency department approximately 1 week ago for the same complaint. When asked if he has had any follow-up at this time he states he has not. Reports that he needs a referral to secondary special education teacher, and he has not received a call back from his primary care provider. Onset of pain was approximately 2 weeks ago. A presents to the left side of the chest, intermittent in nature, lasting a few seconds before self-resolving. Denies any exacerbating or alleviating factors, states at times it happened even while at rest, nonexertional. Denies any symptoms associated with the pain. Denies headaches, dizziness, lightheadedness, neck pain, neck stiffness, shortness of breath, difficulty breathing, nausea, vomiting, abdominal pain, numbness or tingling of the extremities, generalized weakness. At this time he is currently asymptomatic. He states that he returned today because his symptoms have continued to occur. Related Data Home Medications Medication Instructions Recorded Confirmed aripiprazole 15 mg tablet 15 mg PO DAILY 08/14/21 clonazepam 0.5 mg tablet 0.5 mg PO DAILY PRN panic attack 08/14/21 clonidine HCl 0.1 mg tablet 0.1 mg PO BID 08/14/21 fluoxetine 40 mg capsule 40 mg PO DAILY 08/14/21 Previous Rx's Medication Instructions Recorded ibuprofen 600 mg tablet 600 mg PO Q6H PRN pain #20 tabs 11/06/20 prazosin 1 mg capsule 1 mg PO BEDTIME 30 days #30 caps 04/03/21 quetiapine 25 mg tablet 25 mg PO TID PRN moderate anxiety 04/03/21 30 days #60 tabs cyclobenzaprine 10 mg tablet 10 mg PO TID PRN muscle spasm #10 08/27/21 tabs naproxen 500 mg tablet 500 mg PO BID PRN pain 10 days #20 09/02/21 tabs Allergies Allergy/AdvReac Type Severity Reaction Status Date / Time acetaminophen [Vicodin] Allergy Intermediate rash Verified 08/12/22 09:24 hydrocodone [From VICODIN] Allergy Intermediate RASH Verified 08/12/22 09:24 penicillin V Allergy Intermediate Unknown Verified 08/12/22 09:24 Penicillins [PENICILLINS] Allergy Intermediate HIVES Verified 08/12/22 09:24 Gadolinium-Containing Allergy Mild Pt Verified 08/12/22 09:24 Contrast Medi developed [GADOLINIUM-CONTAINING hives on CONTRAST] neck and chest, no other complications Review of Systems Review of Systems: Constitutional : No Weight loss, No Fever, No Chills ENT/Mouth :? No sore throat, No Rhinorrhea Eyes: No Eye Pain, No Swelling Cardiovascular : no Chest Pain, no SOB, no Dyspnea on Exertion, No Orthopnea, No Edema, No Palpitations Respiratory : No Cough, No Sputum Gastrointestinal : no Nausea, No Vomiting, No Diarrhea, No abdominal Pain, No Hematochezia, No Melena Genitourinary : No Dysuria, No Urinary Frequency Musculoskeletal : No joint pain, No Myalgias, No Joint Swelling Skin : No Skin Lesions, No rash Neuro : No Weakness, No Numbness, No Dizziness, No Headache Psych : No Anxiety/Panic, No Depression Heme/Lymph: No Bruising, No Lymphadenopathy Endocrine : No Polyuria, No Polydipsia Yes all other systems are reviewed and are negative [facility] Past Medical History Attestation statement: The following information was validated with the patient. Medical History Adjustment disorder with mixed disturbance of emotions and conduct Back pain Chronic post-traumatic stress disorder (PTSD) Lumbar back pain Radicular leg pain Radicular pain of both lower extremities Surgical History Previous back surgery Family History Family History Father Unknown family medical history Mother Diabetes mellitus Heart failure HTN (hypertension) History of bilateral hip replacements Maternal Grandmother Diabetes mellitus HTN (hypertension) Social History Social History Household Members: None Housing: Homeless Housing Other:: Staying [facility] (old [facility] in [place])- working with [employer] Are you a primary palliative care nurse to a significant other at home: No Do you presently have visiting nurse or other home services: No Alcohol intake: never Patient Tobacco Use Status: Current everyday Tobacco user Tobacco use type: Cigarette Cigarettes Per Day: 7 Smoked in Last 30 Days: Yes e-Cigarette/Vaping Use: Never Used Second Hand Smoke Exposure: Yes Use of substances other than those prescribed or required for medical reasons: Yes Substance Use Type: Marijuana Advance Directives: No Advance Directives Information Provided: Yes service: No Current occupational status: unemployed Sexual orientation: Straight/Heterosexual Cognitive needs: No Hearing needs: No Vision needs: No Physical Exam Vital Signs: Vital Signs: Last Vital Signs Temp 98 F 08/12/22 11:16 Pulse 61 08/12/22 12:00 Resp 16 08/12/22 12:00 BP 102/67 08/12/22 12:00 Pulse Ox 96 08/12/22 12:00 O2 Del Method 08/12/22 12:00 BMI result Body Mass Index 28.4 Appearance: Alert.?Oriented to person, place and time. No acute distress.?Normal affect. Eyes: Pupils equal, round and reactive to light.? ENT: Pharynx normal.?? Neck: Normal inspection.? Neck supple.?? CVS: Heart sounds normal. Normal heart rate and rhythm.? Pulses normal.?? Respiratory: No respiratory distress.? Lung sounds clear to auscultation bilaterally?? Abdomen: Soft and non-tender. Normoactive bowel sounds. Skin: Skin warm and dry.? Normal skin color.? Extremities: No lower extremity edema.? No calf ttp? Neuro: Moves all extremities spontaneously. Sensation intact bilaterally. CN II-XII intact. No focal neuro deficits. Ambulates with normal steady gait. Medical Decision Making Medical Decision Making MDM Narrative: Patient is a 46-year-old male with past medical history of PTSD, lumbar radiculopathy presents to the emergency department for evaluation of chest pain as reported in HPI. At this time he is currently asymptomatic. Upon presenting to emergency department was mildly tachycardic and hypertensive, at the time of my examination heart rate is normal, 76, appears to be normal sinus rhythm on cardiac cath lab technologist, BP 108/76. Reviewed labs and EKG that were obtained during initial triage. CBC and BMP are overall unremarkable. High sensitive troponin is undetectable, EKG obtained at the time of arrival which revealed sinus tachycardia with ventricular rate of 105, QTC 475, without ST elevation, ST depression or T-wave inversion. Heart score 3, unlikely ACS at this time. PERC negative, unlikely PE. COVID-19 and influenza testing are negative. Chest x-ray reveals no acute cardiopulmonary process. Reviewed with patient all findings at this time. Feel that he is stable for discharge home, outpatient follow-up with PCP/cardiology. Reviewed worrisome signs and symptoms that would warrant re-evaluation in the emergency department. All questions answered. Departed in stable condition. Differential Diagnosis Differential Diagnoses: The differential diagnosis associated with the presentation includes (ACS, pulmonary embolism, pneumonia, pneumothorax, chest wall pain, costochondritis, GERD) Lab Data MDM Lab Attestation statement: I reviewed the patient's lab results. 08/12/22 09:37 08/12/22 09:37 Labs: Lab Results 08/12/22 08/12/22 08/12/22 Range/Units 09:37 09:37 09:37 WBC 6.4 (4.8-10.8) X10*3/uL RBC 4.99 (4.60-5.80) X10*6/uL Hgb 15.8 (14.0-18.0) g/dl Hct 46.1 (42.0-52.0) % MCV 92.4 (80.0-98.0) fL MCH 31.7 (27.0-33.0) pg MCHC 34.3 (31.0-36.0) g/dl RDW 12.8 (11.0-16.0) % Plt Count 231 (160-400) X10*3/uL MPV 10.4 (9.4-12.4) fL Immature Gran % (Auto) 0.2 (0.0-0.4) % Neut % (Auto) 36.4 L (45-73) % Lymph % (Auto) 48.8 H (20-40) % Erie % (Auto) 12.3 H (2-11) % Eos % (Auto) 1.7 (0-4) % Baso % (Auto) 0.6 (0-2) % Lymph # (Auto) 3.1 (1.2-4.9) X10*3/uL [place] # (Auto) 0.8 (0.1-1.2) X10*3/uL Eos # (Auto) 0.1 (0.0-0.4) X10*3/uL Baso # (Auto) 0.0 (0.0-0.2) X10*3/uL Abs Immat Gran (auto) 0.01 (0.00-0.03) X10*3/uL Absolute Neuts (auto) 2.3 (2.0-8.3) x10*3/uL Absolute Nucleated RBC 0.000 (0.0-0.012) X10*3/uL Nucleated RBC % (auto) 0.0 (0.0-0.2) /100WBC Sodium 142 (135-145) mmol/L Potassium 4.3 (3.3-5.1) mmol/L Chloride 107 (96-108) mmol/L Carbon Dioxide 28 (22-29) mmol/L Anion Gap 11 L (12-20) BUN 15 (9-16) mg/dL Creatinine 1.09 (0.5-1.4) mg/dL Estim Creat Clear Calc 83.2 Estimated GFR > 60 Random Glucose 109 (60-115) mg/dL Calcium 9.4 (8.4-10.2) mg/dL Troponin I High Sens < 3.5 (<3.5-35.0) ng/L COVID-19 (CINTHYA) (Negative) COVID-19 Clin Com Influenza Type A (LUKAS) (Negative) Influenza Type B (LUKAS) (Negative) Influenza A & B Note 08/12/22 08/12/22 Range/Units 09:37 09:37 WBC (4.8-10.8) X10*3/uL RBC (4.60-5.80) X10*6/uL Hgb (14.0-18.0) g/dl Hct (42.0-52.0) % MCV (80.0-98.0) fL MCH (27.0-33.0) pg MCHC (31.0-36.0) g/dl RDW (11.0-16.0) % Plt Count (160-400) X10*3/uL MPV (9.4-12.4) fL Immature Gran % (Auto) (0.0-0.4) % Neut % (Auto) (45-73) % Lymph % (Auto) (20-40) % [place]rie % (Auto) (2-11) % Eos % (Auto) (0-4) % Baso % (Auto) (0-2) % Lymph # (Auto) (1.2-4.9) X10*3/uL [place] # (Auto) (0.1-1.2) X10*3/uL Eos # (Auto) (0.0-0.4) X10*3/uL Baso # (Auto) (0.0-0.2) X10*3/uL Abs Immat Gran (auto) (0.00-0.03) X10*3/uL Absolute Neuts (auto) (2.0-8.3) x10*3/uL Absolute Nucleated RBC (0.0-0.012) X10*3/uL Nucleated RBC % (auto) (0.0-0.2) /100WBC Sodium (135-145) mmol/L Potassium (3.3-5.1) mmol/L Chloride (96-108) mmol/L Carbon Dioxide (22-29) mmol/L Anion Gap (12-20) BUN (9-16) mg/dL Creatinine (0.5-1.4) mg/dL Estim Creat Clear Calc Estimated GFR Random Glucose (60-115) mg/dL Calcium (8.4-10.2) mg/dL Troponin I High Sens (<3.5-35.0) ng/L COVID-19 (CINTHYA) Negative (Negative) COVID-19 Clin Com See Note Influenza Type A (LUKAS) Negative (Negative) Influenza Type B (LUKAS) Negative (Negative) Influenza A & B Note See Note Independent Interpretation I performed an independent interpretation of an: EKG (As noted above) and Plain X-Ray (Have personally interpreted chest x-ray and agree with radiologist impression) Radiology Impression Discussion of test interpretation with radiology: I have reviewed the radiologist's reading. Radiologist Impression: XR/XR chest 2V IMPRESSION: No active disease. Discharge Plan Discharge Clinical Impression: Chest pain Patient Disposition: Home, Self-Care Instructions: Chest Pain (ED) Additional Instructions: As we discussed, please contact your primary care provider to arrange for follow-up, in addition you have been given the contact information for cardiology office to follow-up with for persistent chest pain. Please call their office when you leave today are 1st thing tomorrow morning. You can take ibuprofen 200 mg, 3 tablets (600mg) every 6-8 hours as needed for pain, in addition to Tylenol 500 mg, 2 tablets (1,000mg) every 4-6 hours as needed for pain, but not to exceed 3 doses daily (3,000mg).? You may return back to emergency department any new or worsening symptoms or concerns. Prescriptions: No Action ibuprofen 600 mg tablet 600 mg PO Q6H PRN (Reason: pain) Qty: 20 0RF cyclobenzaprine 10 mg tablet 10 mg PO TID PRN (Reason: muscle spasm) Qty: 10 0RF naproxen 500 mg tablet 500 mg PO BID PRN (Reason: pain) 10 Days Qty: 20 0RF prazosin 1 mg Capsule 1 mg PO BEDTIME 30 Days Qty: 30 0RF Protocol: Hold for SBP< HOLD for SBP < : 90 quetiapine 25 mg Tablet 25 mg PO TID PRN (Reason: moderate anxiety) 30 Days Qty: 60 0RF clonidine HCl 0.1 mg tablet 0.1 mg PO BID fluoxetine 40 mg capsule 40 mg PO DAILY clonazepam 0.5 mg tablet 0.5 mg PO DAILY PRN (Reason: panic attack) aripiprazole 15 mg tablet 15 mg PO DAILY Referrals: Kranthi Varner FNP-JHONY [Primary Care Provider] - Tomas Jefferson MD [Physician] - Interventions: ED Discharge Assessment Last Done: 08/12/22 13:53 Discharge Date/Time: 08/12/22 13:53
[2022-08-12 12:00] VITALS: BP 102/67; PULSE 61; RESP 16; O2SAT 96
[2022-08-12 12:01] VITALS: PULSE 63
== END 2022-08-12 13:53 | disposition home or self-care (01) ==
PROVIDERS: Emergency Provider Emergency Medicine; PCP Nurse Practitioner Family
DX: R07.9 Chest pain, unspecified (principal); Z20.822 Contact with and (suspected) exposure to COVID-19; F43.12 Post-traumatic stress disorder, chronic; F43.25 Adjustment disorder with mixed disturbance of emotions and conduct; F17.210 Nicotine dependence, cigarettes, uncomplicated; F12.90 Cannabis use, unspecified, uncomplicated; Z79.899 Other long term (current) drug therapy
CPT/HCPCS: 36415; 71046; 80048; 84484; 85025; 87502; 87635; 93005; 99283; 99284

== ENCOUNTER → 2022-09-07 14:30 | Outpatient (BNVA) | payer OTHER, SELFPAY | PROVIDERS: PCP Nurse Practitioner Family; Visit Provider Internal Medicine | DX: R07.2 Precordial pain (principal) | CPT/HCPCS: 99202 ==

== ENCOUNTER → 2022-09-10 14:56 | Outpatient (REF) | payer OTHER, SELFPAY ==
--- NOTE | 2022-09-10 14:59 | CA_ITS ---
Transthoracic Echocardiogram Patient (Last, First, Middle): Jamir Kuo, Gender: Male Date of : 1975 Age: 46 Procedure Date: 09/10/2022 Procedure Type: Transthoracic Echocardiogram Location: OP Height: 167.64 cm Weight: 82.1 kg BSA: 1.92 m2 Heart Rate: bpm BP: 108 / 82 mmHg Telephone Maintainer: SHU Referring MD: Diomedes Mujica MD Symptoms: R07.2 - Precordial pain Study Quality: Adequate ECG Rhythm: Sinus Conclusions: - The left ventricular systolic function is normal. The calculated ejection fraction is 62% by biplane method. - No obvious valvular pathology seen on this study. Findings Left Ventricle Normal left ventricular cavity size. There is normal left ventricular wall thickness. The left ventricular systolic function is normal. The calculated ejection fraction is 62% by biplane method. There is no evidence of regional wall motion abnormalities. Diastolic function is normal for age. LV peak GLS -17.9% (under-estimation possible due to tracking error in 3 chamber view). Right Ventricle Normal right ventricular cavity size and systolic function. Atria Both atria are normal in size. Aortic Valve There is a normal trileaflet aortic valve. There is no aortic valve stenosis. There is no aortic valve regurgitation. Mitral Valve The mitral valve appears normal. There is no mitral valve regurgitation. There is no mitral valve stenosis. Pulmonic Valve The pulmonic valve is likely normal. Tricuspid Valve There is trace tricuspid valve regurgitation. There is no evidence of pulmonary hypertension. Great Vessels The asc aorta and aortic arch are normal in size. Venous The inferior vena cava is normal in size and collapses greater than 50% with inspiration. Pericardium/Pleural There is no evidence of pericardial effusion. Prior Study Comparison No prior study available for comparison. Recommendations, Care & Conclusions No obvious valvular pathology seen on this study. Measurements 2D Linear Measurements IVSd: 0.85 0.6-0.9/0.6-1.0 cm LVIDd: 4.70 3.9-5.3/4.2-5.9 cm LVIDd Index: 2.45 2.4-3.2/2.2-3.1 cm/m2 LVIDs: 3.20 2.0-3.6 cm LVPWd: 0.85 0.7-1.1 cm LA Diam: 2.90 2.7-3.8/3.0-4.0 cm LAIDs Index: 1.51 1.5-2.3 cm/m2 LV Mass: 165.42 67-162/88-224 g LV Mass Index: 86.16 43-95/49-115 g/m2 LVOT Diam: 2.20 3.0+(-)1.3 cm 2D Systolic Function EF 4C: 63.70 >55% EF 2C: 60.20 >55% EF BiP: 62.20 >55% Mitral Valve MV Pk E: 0.98 MV PK A: 0.65 MV Decel Time: 169.00 E/A: 1.50 E'Lateral: 14.00 E'Medial: 9.03 E/E' Med: 10.90 E/E' Lat: 7.00 PHT: 50.00 MVA PHT: 4.40 Decel [place]: 5.80 Aortic Valve AoV Pk Edwin: 1.16 AoV Mn Edwin: 0.83 AoV VTI: 0.26 AoV Pk Grad: 5.00 Aov Mn Grad: 3.00 SEKOU Cont.VTI: 2.90 LVOT LVOT Pk Edwin: 0.92 LVOT Mn Edwin: 0.63 LVOT VTI: 0.20 LVOT Pk Grad: 3.00 LVOT Mn Grad: 2.00 LVOT Diam: 2.20 LVOT Area: 3.80 Diastolic Function MV Pk E: 0.98 MV Pk A: 0.65 E/A: 1.50 E'Medial: 9.03 E/E' Med: 10.90 E' Laterial: 14.00 E/E' Lat: 7.00 Right Ventricle TAPSE (mm): 23.20 TVS' Edwin: 15.40 Tricuspid Valve RA Press: 3.00 Great Vessels Aorta Sinus of Valsalva: 3.83 2.0-3.[address] [place]: 2.73 1.7-3.4 cm Ao Asc: 3.10 2.1-3.4 cm Ao Arch: 2.60 Updated in Other Vendor System with Status of Final Diomedes Mujica MD electronically signed on 09/11/2022 12:52:12 PM with status of Final
== END ==
LOC: HO.CARD 14:56
PROVIDERS: PCP Nurse Practitioner Family; Visit Provider Internal Medicine
DX: R07.2 Precordial pain (principal)
CPT/HCPCS: 93306; 93356

== ENCOUNTER → 2022-09-22 10:43 | Outpatient (REF) | payer OTHER, SELFPAY ==
--- NOTE | 2022-09-22 10:46 | CA_ITS ---
Acquisition Time: 2022-09-22 11:04:47 Total Exercise Time: 00:06:30 Test Indications: CP Medications: SEE H Protocol: DUNCAN Max HR: 162 BPM 93% of Pred: 173 BPM Max BP: 148/068 mmHG Max Work Load: 7.7 METS Exercise stress test exercise 6 min 30 sec achieiving 92% MPHR, without anginal symptoms, without arrythmias ,with normotensive response to exercise, without EKG changes. Echo images obtained by tech at rest and immediately post peak exercise. Definity contrast used. Test reviewed with Dr. Jefferson. STRESS ECHO : Technique : Images were obtained at rest and immediately post exercise within 1 minute. Definity contrast was used ot enhance endocardial definition. Images were obtained in multiple views and compared side to side. Findings : At rest images are of good quality. LV systolic function is normal with normal wall motion. Post exercise images are of adequate quality. There is good augmentation of overall LV systolic function with no regional wall motion abnormalities. Conclusion : Stress echo is negative for ischemia Referred By: Diomedes Mujica Overread By: SILVINO JEFFERSON MD
== END ==
LOC: HO.CARD 10:43
PROVIDERS: PCP Nurse Practitioner Family; Visit Provider Internal Medicine
DX: R07.2 Precordial pain (principal)
CPT/HCPCS: 93350; Q9957

== ENCOUNTER 2023-07-01 10:25 | Outpatient (AMB) | payer OTHER, SELFPAY ==
[2023-07-01 10:26] VITALS: BP 120/78; PULSE 98; O2SAT 98; BMI 28.2
--- NOTE | 2023-07-01 10:26 | MHC.PC.OV ---
Vital Signs 07/01/23 10:26 Height 5 ft 6 in Weight 175 lb BMI 28.2 BP 120/78 Blood Pressure Location Rt brachial Position Sitting Pulse 98 Pulse Source Pulse Oximeter Pulse Oximetry (%) 98 Intake Visit Reasons: PE Intake Note: pt is here for physical exam, patient states he has concerns about back pain General Repairer Required: No Allergies acetaminophen [Vicodin] Allergy (Intermediate, Verified 07/01/23 10:27) rash hydrocodone [From VICODIN] Allergy (Intermediate, Verified 07/01/23 10:27) RASH penicillin V Allergy (Intermediate, Verified 07/01/23 10:27) Unknown Penicillins [PENICILLINS] Allergy (Intermediate, Verified 07/01/23 10:27) HIVES Gadolinium-Containing Contrast Medi [GADOLINIUM-CONTAINING CONTRAST] Allergy (Mild, Verified 07/01/23 10:27) Pt developed hives on neck and chest, no other complications Tobacco use date assessed: 07/01/23 Dental Screening Dental Screen Date: 07/01/23 Did you have a dental visit in the last 12 months?: Yes Did you have a dental problem in the last 6 months where you did not have access to dental care?: No Was dental information given to patient?: Patient has dentist HPI PE HPI Details Pt is here for a PE. Will order labs. Pt is supposed to get a colon screen, will check with gastro what is going on with this. Pt has therapist and psychiatrist. Pt reports weakness to his lower extremities. He does have a significant lower back hx (please see previous notes/documentation) [facility] Medical History Radicular pain of both lower extremities Radicular leg pain Lumbar back pain Adjustment disorder with mixed disturbance of emotions and conduct Chronic post-traumatic stress disorder (PTSD) Back pain Surgical History Previous back surgery Family History Father Unknown family medical history Mother Diabetes mellitus Heart failure HTN (hypertension) History of bilateral hip replacements Maternal Grandmother Diabetes mellitus HTN (hypertension) Social History Household Members: None Housing: Homeless Housing Other:: Staying [facility] ([facility] in [place])- working with [employer] Are you a primary career representative to a significant other at home: No Do you presently have visiting nurse or other home services: No Alcohol intake: never Patient Tobacco Use Status: Current everyday Tobacco user Tobacco use type: Cigarette Cigarettes Per Day: 8 e-Cigarette/Vaping Use: Never Used Second Hand Smoke Exposure: Yes Substance Use Type: Marijuana service: No Current occupational status: unemployed Sexual orientation: Straight/Heterosexual Cognitive needs: No Hearing needs: No Vision needs: No Questionnaire PHQ-9 Over the last 2 weeks, how often have you been bothered by any of the following problems? 1. Little interest or pleasure in doing things: several days 2. Feeling down, depressed, or hopeless: more than half the days 3. Trouble falling or staying asleep, or sleeping too much: nearly every day 4. Feeling tired or having little energy: nearly every day 5. Poor appetite or overeating: more than half the days 6. Feeling bad about yourself - or that you are a failure or have let yourself or your family down: more than half the days 7. Trouble concentrating on things, such as reading the newspaper or watching television: not at all 8. Moving or speaking so slowly that other people could have noticed. Or the opposite - being so fidgety or restless that you have been moving around a lot more than usual: nearly every day 9. Thoughts that you would be better off or of hurting yourself in some way: not at all Total score: 16 Depression Screening Interpretation: Positive Depression Screening Follow-up: Existing condition and In treatment Depression Screening Done: Yes 66840 - PHQ-9 Billing: Yes Source: Developed by Drs. Long Larsen, Shona De La Rosa, Rajeev Mcdowell and colleagues, with an educational kaden from [employer]. Thrive Questionnaire Date Thrive assessed: 07/01/23 I am a: Patient What is your living situation today?: I have a steady place to live Within the past 12 months, did the food you bought not last and you didn't have the money to get more?: Sometimes True Within the past 12 months, did you worry whether your food would run out before you got money to buy more?: Sometimes True Do you have trouble paying for medicines?: No Do you have trouble getting transportation to medical appointments?: No Do you have trouble paying your heating and electricity bill?: No Do you have trouble taking care of your child, family member or friend?: No Do you have trouble with day-to-day activities such as bathing, preparing meals, shopping, managing finances, etc.?: No Are you currently unemployed and looking for a job?: No Are you interested in more education?: No Please select the resources that you would like help with: None Currently or been in a relationship where the following occur: no concerns reported CELESTE-7 AMB Questionnaire CELESTE-7 Date CELESTE - 7 assessed: 07/21/23 Feeling nervous, anxious, or on edge: 3 = Nearly every day Not being able to stop or control worryin = More than half the days Worrying too much about different things: 3 = Nearly every day Trouble relaxin = Nearly every day Being so restless that it is hard to sit still: 2 = More than half the days Becoming easily annoyed or irritable: 2 = More than half the days Feeling afraid as if something awful might happen: 2 = More than half the days Total CELESTE-7 score (0-4 normal; 5-9 mild; 10-14 moderate; 15-21 severe): 17 Source: Developed by Drs. Long Larsen, Shona De La Rosa, Rajeev Mcdowell and colleagues, with an educational kaden from [employer]. CELESTE-7 Assessment Billing CELESTE-7 Assessment Tool: CELESTE-7 Assessment 44703 Review of Systems Const Denies chills and Denies fever(s) Eyes Denies blurry vision ENT Denies vertigo, Denies dizziness and Denies sore throat Card Denies chest pain at rest, Denies chest pain with activity, Denies diaphoresis, Denies dyspnea and Denies dyspnea on exertion Resp Denies cough, Denies dyspnea, Denies dyspnea on exertion and Denies wheezing GI Denies abdominal pain, Denies melena, Denies hematochezia, Denies constipation, Denies diarrhea and Denies loose stools Denies hematuria Musc Reports numbness (BLE) and Reports tingling (BLE) Skin/Breast Denies lesions Neuro Denies vertigo, Denies dizziness, Reports numbness (BLE) and Reports tingling (BLE) Psych Reports anxiety, Reports depression, Denies homicidal ideation, Denies suicidal ideation and Denies other (substance abuse) Aller/Immun Denies wheezing Physical exam (Primary Care) Vital Signs: Last Vital Signs Pulse 98 07/01/23 10:26 BP 120/78 07/01/23 10:26 Pulse Ox 98 07/01/23 10:26 BMI result Body Mass Index 28.2 Tobacco/Smoking Status: Tobacco use Status Tobacco use date assessed 07/01/23 07/01/23 10:33 Patient Tobacco Use Status Current everyday Tobacco 07/01/23 10:26 Tobacco use type Cigarette 07/01/23 10:26 e-Cigarette/Vaping Use Never Used 07/01/23 10:26 Depression Screening Interpretation: Positive Depression Screening Follow-up: Existing condition and In treatment Thrive Assessment: Date of Thrive Assessment Date Thrive assessed 07/01/23 07/01/23 10:33 Currently or been in a relationship where the following occur: no concerns reported Const General: cooperative Nutritional Appearance: well nourished Orientation/consciousness: patient oriented x3 HENMT Head: Yes normal to inspection, Yes normocephalic and Yes atraumatic Ears: TM's normal bilaterally Eyes General: appearance normal, both eyes and all related structures Alignment and Position: alignment normal and position normal Neck Neck: Yes normal visual inspection and Yes no lymphadenopathy Thyroid: Thyroid normal Resp Effort & Inspection: normal respiratory effort Auscultation: clear to auscultation bilaterally Cardio Rate: regular rate Rhythm: regular rhythm Heart sounds: S1 normal heart sound present, S2 normal heart sound present and no murmurs GI Palpation (GI): Soft to palpation and nontender Auscultation: normal bowel sounds Other: dorsal penile shaft with foreign body under skin ( a piece of a jeffery ) Scrotum: scrotum normal, testes descended bilaterally and no inguinal hernias Testes: no testicular mass Skin Other: left ABD with faint dry, macular patch, faintly erythematous Neuro Other: +1 patellar reflexes General: patient oriented x3, moves all extremities and no focal motor deficits Romberg Test: Negative Psych Appearance: grossly normal Mental Status: mental status grossly normal Speech and movement: Normal speech and movement present Affect: normal affect Attitude: cooperative Thought process: Normal thought process present Thought content: Normal thought content present Insight: Good insight present (Psych) Judgement: Good judgement present (Psych) Assessment and Plan Assessment & Plan (1) Physical exam: Code(s): Z00.00 - Encounter for general adult medical examination without abnormal findings Plan: Labs ordered Plan The patient agreed to the use of a medical accounts receivable specialist for this encounter. Scribed for JESS Engel-JHONY by Jen Nieves medical accounts receivable specialist, on 07/01/2023 at 10:45 EST. Orders: Orders Complete Blood Count Auto Diff Today Z00.00 - Encounter for general adult medical examination without abnormal findings Comprehensive [place]. Panel Fast Today Z00.00 - Encounter for general adult medical examination without abnormal findings TSH reflex Free T4 Today Z00.00 - Encounter for general adult medical examination without abnormal findings UA CC w/rflx Micro + Cult Today Z00.00 - Encounter for general adult medical examination without abnormal findings Lipid Panel Today Z00.00 - Encounter for general adult medical examination without abnormal findings Coding Level of Care Code Est Pt Prev Care 40-64y(74409) Diagnoses Physical exam Z00.00 Additional Codes CELESTE-7 Assessment Billing - CELESTE-7 Assessment Tool: CELESTE-7 Assessment 31326 ([id number])
== END 2023-07-01 11:00 | disposition home or self-care (01) ==
PROVIDERS: Visit Provider Nurse Practitioner Family
DX: Z00.00 Encounter for general adult medical examination without abnormal findings (principal)
CPT/HCPCS: 99396

== ENCOUNTER 2024-05-25 10:19 | Outpatient (AMB) | payer OTHER, SELFPAY ==
[2024-05-25 10:25] VITALS: BP 118/74; PULSE 80; O2SAT 98; BMI 29.0
--- NOTE | 2024-05-25 10:25 | MHC.PC.OV ---
Vital Signs 05/25/24 10:25 Height 5 ft 6 in Weight 180 lb BMI 29.0 BP 118/74 Blood Pressure Location Rt brachial Position Sitting Pulse 80 Pulse Source Pulse Oximeter Pulse Oximetry (%) 98 Intake Visit Reasons: 6 month fu Intake Note: pt is here for 6 month f/up Allergies acetaminophen [Vicodin] Allergy (Intermediate, Verified 05/25/24 10:25) rash hydrocodone [From VICODIN] Allergy (Intermediate, Verified 05/25/24 10:25) RASH penicillin V Allergy (Intermediate, Verified 05/25/24 10:25) Unknown Penicillins [PENICILLINS] Allergy (Intermediate, Verified 05/25/24 10:25) HIVES Gadolinium-Containing Contrast Medi [GADOLINIUM-CONTAINING CONTRAST] Allergy (Mild, Verified 05/25/24 10:25) Pt developed hives on neck and chest, no other complications Tobacco use date assessed: 07/01/23 Dental Screening Dental Screen Date: 07/01/23 [facility] Medical History Radicular pain of both lower extremities Radicular leg pain Lumbar back pain Adjustment disorder with mixed disturbance of emotions and conduct Chronic post-traumatic stress disorder (PTSD) Back pain Surgical History Previous back surgery Family History Father Unknown family medical history Mother Diabetes mellitus Heart failure HTN (hypertension) History of bilateral hip replacements Maternal Grandmother Diabetes mellitus HTN (hypertension) Social History Household Members: None Housing: Homeless Housing Other:: Staying [facility] ([facility] in [place])- working with [employer] Are you a primary acute care nurse to a significant other at home: No Do you presently have visiting nurse or other home services: No Alcohol intake: never Patient Tobacco Use Status: Current everyday Tobacco user Tobacco use type: Cigarette Cigarettes Per Day: 8 e-Cigarette/Vaping Use: Never Used Second Hand Smoke Exposure: Yes Substance Use Type: Marijuana service: No Current occupational status: unemployed Sexual orientation: Straight/Heterosexual Cognitive needs: No Hearing needs: No Vision needs: No Questionnaire PHQ-9 Over the last 2 weeks, how often have you been bothered by any of the following problems? 1. Little interest or pleasure in doing things: several days 2. Feeling down, depressed, or hopeless: several days 3. Trouble falling or staying asleep, or sleeping too much: not at all 4. Feeling tired or having little energy: several days 5. Poor appetite or overeating: not at all 6. Feeling bad about yourself - or that you are a failure or have let yourself or your family down: several days 7. Trouble concentrating on things, such as reading the newspaper or watching television: not at all 8. Moving or speaking so slowly that other people could have noticed. Or the opposite - being so fidgety or restless that you have been moving around a lot more than usual: several days 9. Thoughts that you would be better off or of hurting yourself in some way: not at all Total score: 5 Depression Screening Interpretation: Negative Depression Screening Done: Yes 46093 - PHQ-9 Billing: Yes Source: Developed by Drs. Long Larsen, Shona De La Rosa, Rajeev Mcdowell and colleagues, with an educational kaden from [employer]. Thrive Questionnaire Date Thrive assessed: 05/25/24 I am a: Patient What is your living situation today?: I have a steady place to live Within the past 12 months, did the food you bought not last and you didn't have the money to get more?: Sometimes True Within the past 12 months, did you worry whether your food would run out before you got money to buy more?: Sometimes True Do you have trouble paying for medicines?: No Do you have trouble getting transportation to medical appointments?: Yes Do you have trouble paying your heating and electricity bill?: No Do you have trouble taking care of your child, family member or friend?: No Do you have trouble with day-to-day activities such as bathing, preparing meals, shopping, managing finances, etc.?: No Are you currently unemployed and looking for a job?: Yes Are you interested in more education?: Yes Please select the resources that you would like help with: Education Currently or been in a relationship where the following occur: No concerns reported THRIVE Score: 3 AUDIT C Alcohol Use Questionnaire (AUDIT-C) 1. How often do you have a drink containing alcohol?: Monthly or less 2. How many drinks containing alcohol do you have on a typical day when you are drinking?: 3 or 4 3. How often do you have six or more drinks on one occasion?: Never Total Score: 2 Score Reviewed/Action Taken: Yes CELESTE-7 AMB Questionnaire CELESTE-7 Date CELESTE - 7 assessed: 05/25/24 Feeling nervous, anxious, or on edge: 1 = Several days Not being able to stop or control worryin = Several days Worrying too much about different things: 2 = More than half the days Trouble relaxin = Several days Being so restless that it is hard to sit still: 1 = Several days Becoming easily annoyed or irritable: 1 = Several days Feeling afraid as if something awful might happen: 1 = Several days Total CELESTE-7 score (0-4 normal; 5-9 mild; 10-14 moderate; 15-21 severe): 8 Source: Developed by Drs. Long Larsen, Shona De La Rosa, Rajeev Mcdowell and colleagues, with an educational kaden from [employer]. CELESTE-7 Assessment Billing CELESTE-7 Assessment Tool: CELESTE-7 Assessment 10786 Physical exam (Primary Care) Vital Signs: Last Vital Signs Pulse 80 05/25/24 10:25 BP 118/74 05/25/24 10:25 Pulse Ox 98 05/25/24 10:25 BMI result Body Mass Index 29.0 Tobacco/Smoking Status: Tobacco use Status Tobacco use date assessed 07/01/23 05/25/24 10:26 Patient Tobacco Use Status Current everyday Tobacco 05/25/24 10:26 Tobacco use type Cigarette 05/25/24 10:26 e-Cigarette/Vaping Use Never Used 05/25/24 10:26 PHQ-9: PHQ-9 Score PHQ-9: Total score 5 05/25/24 10:26 Depression Screening Interpretation: Negative Thrive Assessment: Date of Thrive Assessment Date Thrive assessed 05/25/24 05/25/24 10:26 Currently or been in a relationship where the following occur: No concerns reported Coding Level of Care Code Est Pt Level 3 (39666) Diagnoses Adjustment disorder with mixed disturbance of emotions and conduct F43.25 Chronic post-traumatic stress disorder (PTSD) F43.12 Screening for prostate cancer Z12.5 Left hip pain M25.552 Additional Codes CELESTE-7 Assessment Billing - CELESTE-7 Assessment Tool: CELESTE-7 Assessment 80678 ([id number]) PHQ-9 - 54941 - PHQ-9 Billing: Yes ([id number]) Assessment & Plan Assessment & Plan (1) Adjustment disorder with mixed disturbance of emotions and conduct: Code(s): F43.25 - Adjustment disorder with mixed disturbance of emotions and conduct Category: Medical (2) Chronic post-traumatic stress disorder (PTSD): Code(s): F43.12 - Post-traumatic stress disorder, chronic Category: Medical (3) Screening for prostate cancer: Code(s): Z12.5 - Encounter for screening for malignant neoplasm of prostate Category: Medical (4) Left hip pain: Code(s): M25.552 - Pain in left hip Category: Medical Plan . Orders: Orders Complete Blood Count Auto Diff Today F43.12 - Post-traumatic stress disorder, chronic, F43.25 - Adjustment disorder with mixed disturbance of emotions and conduct XR hip LT min 2V Today M25.552 - Pain in left hip Comprehensive [place]. Panel Fast Today F43.12 - Post-traumatic stress disorder, chronic, F43.25 - Adjustment disorder with mixed disturbance of emotions and conduct TSH reflex Free T4 Today F43.12 - Post-traumatic stress disorder, chronic, F43.25 - Adjustment disorder with mixed disturbance of emotions and conduct UA CC w/rflx Micro + Cult Today F43.12 - Post-traumatic stress disorder, chronic, F43.25 - Adjustment disorder with mixed disturbance of emotions and conduct Lipid Panel Today F43.12 - Post-traumatic stress disorder, chronic, F43.25 - Adjustment disorder with mixed disturbance of emotions and conduct Prostate Specific Antigen Scr Today Z12.5 - Encounter for screening for malignant neoplasm of prostate
== END 2024-05-25 12:55 | disposition home or self-care (01) ==
PROVIDERS: PCP Nurse Practitioner Family; Visit Provider Nurse Practitioner Family
DX: F43.25 Adjustment disorder with mixed disturbance of emotions and conduct (principal); F43.12 Post-traumatic stress disorder, chronic; Z12.5 Encounter for screening for malignant neoplasm of prostate; M25.552 Pain in left hip

== ENCOUNTER → 2024-05-25 10:19 | Outpatient (BNVA) | payer OTHER, SELFPAY | PROVIDERS: PCP Nurse Practitioner Family; Visit Provider Nurse Practitioner Family | DX: F43.25 Adjustment disorder with mixed disturbance of emotions and conduct (principal); F43.12 Post-traumatic stress disorder, chronic; M25.552 Pain in left hip | CPT/HCPCS: 96127; 99212 ==

== ENCOUNTER 2025-06-04 12:10 | Outpatient (AMB) | payer MEDICAID, SELFPAY ==
[2025-06-04 13:03] VITALS: BP 100/60; PULSE 75; RESP 16; TEMP 36.8; O2SAT 96; BMI 27.8
--- NOTE | 2025-06-04 13:03 | A.OFFPC_ITS ---
Vital Signs 06/04/25 13:03 Height 5 ft 6 in Weight 172 lb BMI 27.8 BP 100/60 Blood Pressure Location Lt brachial Position Sitting Respiration 16 Pulse 75 Pulse Source Pulse Oximeter Temp 98.3 F Temp Source Oral Pulse Oximetry (%) 96 Oxygen Delivery Method Room Air Intake Visit Reasons: PE Software Sales Manager Required: No Accompanied by: Self / Same As Patient Allergies acetaminophen (Vicodin) Allergy (Intermediate, Verified 06/04/25 13:18) rash hydrocodone (From VICODIN) Allergy (Intermediate, Verified 06/04/25 13:18) RASH penicillin V Allergy (Intermediate, Verified 06/04/25 13:18) Unknown Penicillins (PENICILLINS) Allergy (Intermediate, Verified 06/04/25 13:18) HIVES Gadolinium-Containing Contrast Medi (GADOLINIUM-CONTAINING CONTRAST) Allergy (Mild, Verified 06/04/25 13:18) Pt developed hives on neck and chest, no other complications Medication List - Last Reconciled 06/04/25 by JESS Kamara- aripiprazole 15 mg PO DAILY 30 days fluoxetine 40 mg PO DAILY 30 days ibuprofen 600 mg PO Q6H PRN Tobacco use date assessed: 06/04/25 Dental Screening Dental Screen Date: 06/04/25 Did you have a dental visit in the last 12 months?: No Did you have a dental problem in the last 6 months where you did not have access to dental care?: No Was dental information given to patient?: Patient declined HPI PE HPI Details History of Present Illness The patient is a 49 year old male presenting for a physical exam. He has a significant psychiatric history, including various mood disorders, adjustment disorder with mixed disturbances of emotions and conduct, and post-traumatic stress disorder (PTSD). He was seeing a psychiatrist but missed an appointment and is now on a different list to be seen. He denies any suicidal or homicidal ideation. He has an ongoing history of chronic lower back pain with radicular symptoms extending to his bilateral lower extremities. He had a spinal fusion several years ago, though documentation for this procedure is currently missing. He also reports severe foot pain, bilat, has seen a extract mixer year ago. Regarding preventative care, a previous referral to gastroenterology for a colon screening was reportedly not completed. Health Maintenance A previous referral for a colon screening was not completed, so a new referral will be sent to gastroenterology. Labs, including a PSA test, were ordered, and the patient was instructed to complete these while fasting. Social History Review of Systems - Cardiovascular: Denies chest pain. - Respiratory: Denies shortness of breat h. - Gastrointestinal: Denies abdominal lizet n, blood in stool, constipation, or diarrhea. - Musculoskeletal: Reports chronic lower back pain and severe foot pain. - Neurological: Reports radicular sympto ms to his bilateral lower extremities. Denies symptoms of cauda equina. - Integumentary: Reports dry, cracking s kin on his feet. - Psychiatric: Reports history of mood d isorders, adjustment disorder, and PTSD. Denies suicidal or homicidal ideation. Physical Exam General: Cooperative, healthy appearing, comfortable, no acute distress and well developed Orientation: Patient oriented x3 Limitations: Difficulty getting into supine position, unable to do leg lifts or knee raises due to discomfort Head: Normal to inspection Ears: Hearing grossly normal bilaterally Nose: Normal external nose present Face and sinus: Normal facial exam Eyes: Appearance normal, both eyes and all related structures Neck: Normal visual inspection and Yes full ROM Respiratory: Normal respiratory effort and able to speak in complete sentences. Clear to auscultation bilaterally Cardiovascular: Regular rate and rhythm. Normal S1 and S2 GI: Normal to inspection. Soft to palpation and nontender : Testicles without masses/lesions and no hernias appreciated. dorsal mid penile shaft with circular raised area (foreign body placed by pt years ago), no signs of infection noted Skin: Feet are dry, especially in heel region with cracking. Onychomycosis noted bilaterally with elongated toenails. Left foot, fifth MTP joint region plantar aspect with large corn. No signs of secondary infection. Neuro: Patient oriented x3 Extremities: Radicular symptoms to bilateral lower extremities. Severe foot pain noted. Normal to inspection otherwise. Results Plan 1. Psychiatric Disorders (Adjustment Dis order And Ptsd) The patient has a significant psychiatric history, including adjustment disorder and post-traumatic stress disorder, and currently denies suicidal or homicidal ideation. His current medications, fluoxetine and Abilify, will be continued. He has been advised to re-establish care with a psychiatric provider for ongoing management, and i made pt aware of this. 2. Chronic Low Back Pain With Radiculopa thy The patient reports ongoing, severe chronic low back pain with radicular symptoms to his bilateral lower extremities. His discomfort prevented him from performing leg lifts or knee raises during the examination. He denies any symptoms of cauda equina. Given the severity of his symptoms and his history of a spinal fusion, an MRI will be ordered to reassess his condition, difficult to perform an eval/exam today due to pain 3. Foot Conditions (Onychomycosis, [place]) The patient complains of severe foot pain. Examination revealed bilateral onychomycosis, elongated toenails, and dry, cracking skin on the heels. A large corn was also noted on the plantar aspect of the left fifth MTP joint. A referral will be made to a extract mixer for further evaluation and management. Discussion Notes I informed the patient that I will continue his fluoxetine and Abilify but emphasized that he needs to follow up with a psychiatric provider for his ongoing mood disorders. We discussed his severe chronic lower back pain, and I explained that I am ordering an MRI to reassess his condition. I also told him I am placing a referral to a extract mixer for his foot pain and other related issues. Additionally, I am re-referring him to gastroenterology for a colon screening that was not previously done and have ordered labs, including a PSA test, which he should get done while fasting. Patient Instructions - Continue taking your fluoxetine and Ab ilify as prescribed. - [facility] your [facility] care. - We will be ordering an MRI for your lo wer back to investigate the cause of your pain. - We will provide you with a referral to see a extract mixer (foot doctor) for your foot pain, toenails, and corn. - We are also giving you a new referral for a colon screening (colonoscopy), which needs to be completed. - Please go to a lab to get your blood t ests done, including a PSA test. You will need to be fasting for this. [facility] Medical History Radicular pain of both lower extremities Radicular leg pain Lumbar back pain Adjustment disorder with mixed disturbance of emotions and conduct Chronic post-traumatic stress disorder (PTSD) Back pain Surgical History Previous back surgery Family History Father Unknown family medical history Mother Diabetes mellitus Heart failure HTN (hypertension) History of bilateral hip replacements Maternal Grandmother Diabetes mellitus HTN (hypertension) Social History Household Members: None Housing: Homeless Housing Other:: Staying [facility] ([facility] [address] in [place])- working with [employer] Are you a primary senior resident care director to a significant other at home: No Do you presently have visiting nurse or other home services: No Alcohol intake: never Patient Tobacco Use Status: Current everyday Tobacco user Tobacco use type: Cigarette Cigarettes Per Day: 8 e-Cigarette/Vaping Use: Never Used Second Hand Smoke Exposure: Yes Substance Use Type: Marijuana service: No Current occupational status: unemployed Sexual orientation: Straight/Heterosexual Cognitive needs: No Hearing needs: No Vision needs: No Questionnaire Thrive Questionnaire Date Thrive assessed: 05/25/24 I am a: Patient What is your living situation today?: I have a steady place to live Within the past 12 months, did the food you bought not last and you didn't have the money to get more?: Sometimes True Within the past 12 months, did you worry whether your food would run out before you got money to buy more?: Sometimes True Do you have trouble paying for medicines?: No Do you have trouble getting transportation to medical appointments?: Yes Do you have trouble paying your heating and electricity bill?: No Do you have trouble taking care of your child, family member or friend?: No Do you have trouble with day-to-day activities such as bathing, preparing meals, shopping, managing finances, etc.?: No Are you currently unemployed and looking for a job?: Yes Are you interested in more education?: Yes Currently or been in a relationship where the following occur: No concerns reported THRIVE Score: 3 CELESTE-7 AMB Questionnaire CELESTE-7 Date CELESTE - 7 assessed: 05/25/24 Source: Developed by Drs. Long Larsen, Shona De La Rosa, Rajeev Mcdowell and colleagues, with an educational kaden from [employer]. Physical exam (Primary Care) Vital Signs: Last Vital Signs Temp 98.3 F 06/04/25 13:03 Pulse 75 12/22/25 13:03 Resp 16 06/04/25 13:03 BP 100/60 06/04/25 13:03 Pulse Ox 96 06/04/25 13:03 Oxygen Delivery Method Room Air 06/04/25 13:03 BMI result Body Mass Index 27.8 Tobacco/Smoking Status: Tobacco use Status Tobacco use date assessed 06/04/25 06/04/25 13:08 Patient Tobacco Use Status Current everyday Tobacco 06/04/25 13:08 Tobacco use type Cigarette 06/04/25 13:08 e-Cigarette/Vaping Use Never Used 06/04/25 13:08 Thrive Assessment: Date of Thrive Assessment Date Thrive assessed 05/25/24 06/04/25 13:08 Currently or been in a relationship where the following occur: No concerns reported Coding Level of Care Code Est Pt Level 3 (71747) Est Pt Prev Care 40-64y(46221) Diagnoses Screening for colon cancer Z12.11 Physical exam Z00.00 Screening for prostate cancer Z12.5 Adjustment disorder with mixed disturbance of emotions and conduct F43.25 Chronic post-traumatic stress disorder (PTSD) F43.12 Bilateral foot pain M79.671; M79.672 Lumbar back pain M54.50 Radicular pain of both lower extremities M54.10 Assessment & Plan Assessment & Plan (1) Screening for colon cancer: Code(s): Z12.11 - Encounter for screening for malignant neoplasm of colon Category: Medical (2) Physical exam: Code(s): Z00.00 - Encounter for general adult medical examination without abnormal findings Category: Medical (3) Screening for prostate cancer: Code(s): Z12.5 - Encounter for screening for malignant neoplasm of prostate Category: Medical (4) Adjustment disorder with mixed disturbance of emotions and conduct: Code(s): F43.25 - Adjustment disorder with mixed disturbance of emotions and conduct Category: Medical (5) Chronic post-traumatic stress disorder (PTSD): Code(s): F43.12 - Post-traumatic stress disorder, chronic Category: Medical (6) Bilateral foot pain: Code(s): M79.671 - Pain in right foot; M79.672 - Pain in left foot Category: Medical (7) Lumbar back pain: Code(s): M54.50 - Low back pain, unspecified Category: Medical (8) Radicular pain of both lower extremities: Code(s): M54.10 - Radiculopathy, site unspecified Category: Medical Plan . Orders: Orders Complete Blood Count Auto Diff Today Z00.00 - Encounter for general adult medical examination without abnormal findings TSH reflex Free T4 Today Z00.00 - Encounter for general adult medical examination without abnormal findings UA CC w/rflx Micro + Cult Today Z00.00 - Encounter for general adult medical examination without abnormal findings Comprehensive [place]. Panel Fast Today Z00.00 - Encounter for general adult medical examination without abnormal findings Lipid Panel Today Z00.00 - Encounter for general adult medical examination without abnormal findings Prostate Specific Antigen Scr Today Z12.5 - Encounter for screening for malignant neoplasm of prostate MR lumbar spine wo con Today M54.10 - Radiculopathy, site unspecified, M54.50 - Low back pain, unspecified Referrals Podiatry Referral M79.671 - Pain in right foot, M79.672 - Pain in left foot Gastroenterology Referral Z12.11 - Encounter for screening for malignant neoplasm of colon Medications: Changed From aripiprazole 15 mg PO DAILY To aripiprazole 15 mg PO DAILY 30 tabs 2RF 30 days From fluoxetine 40 mg PO DAILY To fluoxetine 40 mg PO DAILY 30 caps 2RF 30 days
--- OUTSIDE RECORDS SUMMARY | 2025-06-04 15:25 | XMS_ITS | Clinical Summary ---
Author Organization [facility] ity Address [address] [place] [address] Care Team Providers Care Strawhat Sizer Name Role Phone Kranthi Varner NP Primary Care Provider Social History Tobacco Use Types Packs/Day Years Used Date Smoking Tobacco: Never Assessed Sex and Gender Information Value Date Recorded Sex Assigned at Not on file Legal Sex Male 9:03 AM EST Gender Identity Not on file Sexual Orientation Not on file Plan of Treatment Health Maintenance Due Date Last Done Comments DTaP,Tdap,and Td Vaccines (1 - Tdap) 1993 Hepatitis B Vaccines (1 of 3 - 19+ 3-dose series) 1993 Depression Screening 06/14/2024 Pneumococcal Vaccine: 50+ Ye ars (1 of 1 - PCV) 2024 Zoster Vaccines (1 of 2) 2024 COVID-19 Vaccine ( - 2024-2 6 season) 2025 Influenza Vaccine (#1) 2025 RSV Immunization Adult Patie nts (1 - 1-dose 75+ series) 2049 HIB Vaccines Aged Out No longer eligi ble based on patient's age to complete this topic HPV Vaccines Aged Out No longer eligi ble based on patient's age to complete this topic Hepatitis A Vaccines Aged Out No long er eligible based on patient's age to complete this topic IPV Vaccines Aged Out No longer eligi ble based on patient's age to complete this topic MMR Vaccines Aged Out No longer eligi ble based on patient's age to complete this topic Meningococcal ACWY Vaccine Aged Out N o longer eligible based on patient's age to complete this topic Meningococcal B Vaccine Aged Out No l onger eligible based on patient's age to complete this topic RSV Immunization Patients Un dana 20 months Aged Out No longer eligible b ased on patient's age to complete this topic Varicella Vaccines Aged Out No longer eligible based on patient's age to complete this topic Care Teams Strawhat Sizer Relationship Specialty Start Date End Date Kranthi Varner NP [address] [facility] KEISHA Ramon PCP - General Family Medicine 11/05/17
== END 2025-06-04 13:35 | disposition home or self-care (01) ==
LOC: HO.HMCC 12:11
PROVIDERS: PCP Nurse Practitioner Family; Visit Provider Nurse Practitioner Family
DX: Z00.00 Encounter for general adult medical examination without abnormal findings (principal); F43.25 Adjustment disorder with mixed disturbance of emotions and conduct; F43.12 Post-traumatic stress disorder, chronic; M79.671 Pain in right foot; M79.672 Pain in left foot; M54.50 Low back pain, unspecified; M54.10 Radiculopathy, site unspecified; Z12.5 Encounter for screening for malignant neoplasm of prostate

== ENCOUNTER → 2025-06-04 12:10 | Outpatient (BNVA) | payer MEDICAID, SELFPAY | PROVIDERS: PCP Nurse Practitioner Family; Visit Provider Nurse Practitioner Family | DX: Z00.00 Encounter for general adult medical examination without abnormal findings (principal); F43.10 Post-traumatic stress disorder, unspecified; B35.1 Tinea unguium; M79.671 Pain in right foot; M79.672 Pain in left foot; F43.25 Adjustment disorder with mixed disturbance of emotions and conduct; M54.50 Low back pain, unspecified; M54.16 Radiculopathy, lumbar region; G89.29 Other chronic pain | CPT/HCPCS: 99396 ==